=== PATIENT | female | born 1960 | race Caucasian/White ===

== ENCOUNTER 2022-06-23 16:09 | Emergency (ER) | payer OTHER, SELFPAY ==
--- NOTE | ~2022-06-23 | XR_ITS ---
Right Shoulder Technique: AP and scapular Y views were obtained. Clinical History: Pain Findings: No acute fracture or dislocation seen. Suture anchor present at the right humeral head. Lar ge subacromial spur present. Possible loose body in the subscapularis recess of the joint. Soft tissu es are otherwise unremarkable. Impression: No acute fracture or dislocation. Suture anchor at the right humeral head. Large subacromial spur with possible intra-articular loose body. Reviewed, dictated and finalized at location . GER MUSIC Impression: No acute fracture or dislocation. Suture anchor at the right humeral head. Large subacromial spur with possible intra-articular loose body.
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
[2022-06-23 16:40] VITALS: BP 127/75; PULSE 87; RESP 18; TEMP 36.5; O2SAT 100
== END 2022-06-23 17:25 | disposition home or self-care (01) ==
PROVIDERS: Emergency Provider Emergency Medicine
DX: M25.511 Pain in right shoulder (principal); I10 Essential (primary) hypertension; E03.9 Hypothyroidism, unspecified; Z87.891 Personal history of nicotine dependence; V43.52XA Car driver injured in collision with other type car in traffic accident, initial encounter; Y92.488 Other paved roadways as the place of occurrence of the external cause
CPT/HCPCS: 73030; 99283

== ENCOUNTER 2022-07-06 08:17 | Outpatient (CLI) | payer OTHER, SELFPAY ==
[2022-07-06 11:24] LABS: Basophils Percent Auto 0.8 % (0.2-1.2); Eosinophils Absolute Auto 0.1 K/mm3 (0-0.3); Eosinophils Percent Auto 2.9 % (0-4.4); Hematocrit 37.9 % (37.0-47.0); Hemoglobin 12.3 g/dL (12.0-15.0); Lymphocytes Absolute Auto 1.37 K/mm3 (0.9-3.2); Lymphocytes Percent Auto 35.7 % (18.3-44.2); Mean Corpuscular HGB Conc 32.5 g/dl (32-36); Mean Corpuscular Hemoglobin 29.9 pg (26-34); Mean Platelet Volume 10.3 fl (7.4-10.4); Monocytes Absolute Auto 0.4 K/mm3 (0.1-0.6); Monocytes Percent Auto 9.6 % (2.6-8.5); Platelet Count Result 212 k/mm3 (150-375); Red Blood Count 4.12 M/mm3 (4.2-5.4); Red Cell Distribution Width 12.2 % (11.5-14.5); White Blood Count 3.8 K/mm3 (4.5-10.0)
[2022-07-06 11:28] LABS: Alanine Aminotransferase 27 U/L (6-35); Albumin Level 4.4 g/dL (3.5-5.1); Alkaline Phosphatase 72 U/L (38-126); Anion Gap 3 mmol/L (8-16); Aspartate Amino Transferase 46 U/L (14-36); Bilirubin,Total 0.5 mg/dL (0.2-1.3); Blood Urea Nitrogen 22 mg/dL (7-17); Calcium 8.9 mg/dL (8.4-10.2); Carbon Dioxide 32 mmol/L (22-30); Chloride 98 mmol/L (98-107); Cholesterol 196 mg/dL (0-200); Estimated Glomerular Filt Rate > 60; Glucose 93 mg/dL (65-110); HDL Direct 42 mg/dL; Potassium 3.8 mmol/L (3.4-5.0); Sodium 133 mmol/L (137-145); Triglycerides 107 mg/dL (<150)
[2022-07-06 11:40] LABS: LDL Cholesterol Direct 97 mg/dL
== END 2022-07-06 08:18 | disposition home or self-care (01) ==
LOC: ANHGOSHLAB 08:17
PROVIDERS: Visit Provider Nurse Practitioner
DX: E78.5 Hyperlipidemia, unspecified (principal); I10 Essential (primary) hypertension; E03.9 Hypothyroidism, unspecified
CPT/HCPCS: 36415; 80053; 80061; 84443; 85025

== ENCOUNTER 2022-07-06 10:12 | Outpatient (CLI) | payer OTHER, SELFPAY ==
--- NOTE | ~2022-07-06 | XR_ITS ---
EXAMINATION: XR hand RT min 3V INDICATION: Right hand pain TECHNIQUE: Three views of the right hand are obtained. COMPARISON: None available FINDINGS: No fracture is identified. There is moderate osteoarthritis of multiple interphalangeal brennon nts. Soft tissues are unremarkable. IMPRESSION: 1. Polyarticular osteoarthritis. Reviewed, dictated and finalized at location B. [employer]
== END 2022-07-06 10:13 | disposition home or self-care (01) ==
PROVIDERS: PCP Family Medicine; Visit Provider Nurse Practitioner
DX: M19.041 Primary osteoarthritis, right hand (principal)
CPT/HCPCS: 73130

== ENCOUNTER 2023-01-04 09:11 | Outpatient (CLI) | payer OTHER, SELFPAY ==
[2023-01-04 18:24] LABS: Basophils Percent Auto 0.8 % (0.2-1.2); Eosinophils Absolute Auto 0.1 K/mm3 (0-0.3); Eosinophils Percent Auto 2.8 % (0-4.4); Hemoglobin 11.5 g/dL (12.0-15.0); Immature Granulocyte Absolute 0.01 K/mm3 (0.00-0.031); Immature Granulocyte Percent A 0.3 % (0-0.5); Lymphocytes Absolute Auto 1.18 K/mm3 (0.9-3.2); Lymphocytes Percent Auto 29.7 % (18.3-44.2); Mean Corpuscular HGB Conc 31.9 g/dl (32-36); Mean Corpuscular Hemoglobin 30.1 pg (26-34); Mean Corpuscular Volume 94.2 fl (80-100); Mean Platelet Volume 10.6 fl (7.4-10.4); Monocytes Absolute Auto 0.4 K/mm3 (0.1-0.6); Monocytes Percent Auto 9.8 % (2.6-8.5); Neutrophils Absolute Auto 2.3 K/mm3 (1.3-6.7); Neutrophils Percent Auto 56.6 % (45.5-73.1); Platelet Count Result 193 k/mm3 (150-375); Red Blood Count 3.82 M/mm3 (4.2-5.4)
[2023-01-04 18:28] LABS: Alanine Aminotransferase 33 U/L (6-35); Albumin Level 3.8 g/dL (3.5-5.1); Alkaline Phosphatase 68 U/L (38-126); Anion Gap 3 mmol/L (8-16); Aspartate Amino Transferase 46 U/L (14-36); Bilirubin,Total 0.5 mg/dL (0.2-1.3); Blood Urea Nitrogen 23 mg/dL (7-17); Calcium 8.9 mg/dL (8.4-10.2); Carbon Dioxide 31 mmol/L (22-30); Chloride 101 mmol/L (98-107); Cholesterol 180 mg/dL (0-200); Estimated Glomerular Filt Rate > 60; Glucose 80 mg/dL (65-110); HDL Direct 38 mg/dL; Potassium 3.8 mmol/L (3.4-5.0); Sodium 135 mmol/L (137-145); Triglycerides 131 mg/dL (<150)
[2023-01-04 18:42] LABS: LDL Cholesterol Direct 99 mg/dL
[2023-01-09 10:41] LABS: Vitamin D 1,25 (OH)2 Total 49 pg/mL (18-72); Vitamin D2 1,25 (OH)2 <8 pg/mL; Vitamin D3 1,25 (OH)2 49 pg/mL
== END 2023-01-04 09:12 | disposition home or self-care (01) ==
LOC: ANHGOSHLAB 09:13
PROVIDERS: PCP Family Medicine; Visit Provider Nurse Practitioner Family
DX: Z00.00 Encounter for general adult medical examination without abnormal findings (principal); E55.9 Vitamin D deficiency, unspecified; I10 Essential (primary) hypertension
CPT/HCPCS: 36415; 80053; 80061; 82652; 84443; 85025

== ENCOUNTER 2023-02-08 11:09 | Outpatient (CLI) | payer OTHER, SELFPAY ==
[2023-02-08 12:01] LABS: Strep Group A RT-PCR NOT DETECTED (Negative)
[2023-02-08 12:20] LABS: Influenza A QL RT-PCR Negative (Negative); Influenza B QL RT-PCR Negative (Negative); RSV RNA, RT-PCR Negative (Negative); SARS-CoV-2 RNA PCR Positive (Negative)
== END 2023-02-08 11:10 | disposition home or self-care (01) ==
LOC: ANHLAB 11:11
PROVIDERS: PCP Family Medicine; Visit Provider Family Medicine
DX: U07.1 COVID-19 (principal)
CPT/HCPCS: 87637; 87651

== ENCOUNTER 2023-02-22 10:07 | Outpatient (CLI) | payer OTHER, SELFPAY ==
--- NOTE | 2023-02-22 10:22 | ECG_ITS ---
Measurements Intervals [place] Rate: 64 P: 66 UT: 159 QRS: 38 QRSD: 92 T: 57 QT: 368 QTc: 380 Interpretive Statements SINUS RHYTHM NO PREVIOUS ECG AVAILABLE FOR COMPARISON Electronically Signed On 02-22-2023 14:29:37 CDT by Frederic Booth M.D.
== END 2023-02-22 10:08 | disposition home or self-care (01) ==
LOC: ANHCARD 10:10
PROVIDERS: PCP Family Medicine; Visit Provider Anesthesiology
DX: Z01.818 Encounter for other preprocedural examination (principal)
CPT/HCPCS: 93005

== ENCOUNTER 2023-03-07 09:49 | Day surgery (SDC) | payer OTHER, SELFPAY ==
[2023-03-07 10:51] VITALS: BP 112/77; PULSE 86; RESP 16; TEMP 37.3; O2SAT 100
[2023-03-07] MEDS: LACTATED RINGERS 1,000 ML 30 ML IV CONT ×2 (11:10→13:58)
--- NOTE | 2023-03-07 11:16 | PM.HPGS ---
History of Present Illness History of Present Illness Consent: Risks, benefits, and alternatives have been discussed and questions answered. Patient agrees to proceed with procedure. Chief complaint: Right Foot Hammer Toes, Pain Ankle & Joints RT. FT Narrative: Sybil Campbell is a 62 year old female presenting for hammertoe surgery on the right 2,3,4,5th toes. Review of Systems Review of Systems: All systems reviewed & are unremarkable except as noted in HPI and below Musculoskeletal: Musculoskeletal: Reports other (hammertoes right 2,3,4,5) Neurologic: Reports abnormal gait, Reports numbness, Reports tingling and Reports paresthesias PMF Past Medical History Medical History Hypertension Hypothyroid Peripheral neuropathy Surgical History Surgical History H/O excision of mass Excision of anal skin tag in office 12/14/22 H/O foot surgery H/O Spinal surgery History of abdominoplasty History of breast lift History of total knee replacement Family History Family History Sibling Family history of malignant neoplasm of breast in first degree relative Mother Aortic aneurysm Other Family history of malignant neoplasm Social History Social History Smoking status: Unknown if ever smoked Second hand tobacco smoke exposure: No Alcohol intake: unknown Alcohol use details: rarely Substance use: never Substance use type: does not use Lack of Transportation: No Lack of Food: Never True Current Housing: I Have Housing Concerned About Future Housing: No Difficulty Paying Gas/Electric Bills: No Difficulty Paying for Meds: No Currently Unemployed: No Education: Trade/Vocational Certificate Difficulty w/ Childcare or Family Care: No Living arrangements: alone Occupation/Education: occupation 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 Gender identity (if verbalized by the patient): Female Sexual Orientation (if Verbalized by the Patient): Straight or Heterosexual Spiritual care concerns: No Agree to blood products: Yes Meds Home Medications and Allergies Home Medications Medication Instructions Recorded Confirmed Type multivitamin with folic acid 400 1 tablet PO DAILY #90 tabs 08/03/21 03/07/23 Rx mcg tablet buprenorphine 2 mg-naloxone 0.5 mg 1 film buccal BID 10/19/22 03/07/23 History sublingual film (Suboxone) calcium carbonate 600 mg-vitamin 1 tablet PO BID #60 tabs 11/12/22 03/07/23 Rx D3 10 mcg (400 unit) tablet (Calcium 600 + D(3)) levothyroxine 88 mcg tablet 88 mcg PO DAILY #90 tabs 01/07/23 03/07/23 Rx lisinopril 20 1 tablet PO DAILY #90 tabs 01/11/23 03/07/23 Rx mg-hydrochlorothiazide 12.5 mg tablet Allergies Allergy/AdvReac Type Severity Reaction Status Date / Time No Known Allergies Allergy Unknown Verified 03/07/23 10:48 Vital Signs Vital Signs - 24 hr 03/07/23 10:51 Temperature 37.3 C Pulse Rate 86 Respiratory Rate 16 Blood Pressure 112/77 Pulse Oximetry 100 Oxygen Delivery Room Air Exam Narrative: PT aaox3 Hammertoes right 2,3,4,5 pedal pulses are 2/4 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 Neuro LOPS to the right foot midfoot level Assessment and Plan Assessment and plan (1) Hammertoe of right foot: Code(s): M20.41 - Other hammer toe(s) (acquired), right foot Status: Acute Plan Plan for hammertoe correction right 2,3,4,5th toes D/c once stable
--- NOTE | 2023-03-07 11:32 | WPDANESEPPF ---
Anes - Initial Pre Proc Eval Procedure: Operation Date: 03/07/23 12:00 Proposed Procedures p Correction Hammer Toe Right Second, Third, Fouth and Fifth Toes - Jose Mcconnell DPM Date/Time: 03/07/23 11:32 Surgeon: Jose Mcconnell DPM Pre Op Diagnosis: Right Foot Hammer Toes, Pain Ankle & Joints RT. FT Patient Data Age: 62 Gender: F Height: 1.52 m Weight: 54 kg Last Vital Signs Temp 37.3 C 03/07/23 10:51 Pulse 86 03/07/23 10:51 Resp 16 03/07/23 10:51 BP 112/77 03/07/23 10:51 Pulse Ox 100 03/07/23 10:51 O2 Del Method Room Air 03/07/23 10:51 Allergies Allergy/AdvReac Type Severity Reaction Status Date / Time No Known Allergies Allergy Unknown Verified 03/07/23 10:48 Home Medications Medication Instructions Recorded Confirmed Type multivitamin with folic acid 400 1 tablet PO DAILY #90 tabs 08/03/21 03/07/23 Rx mcg tablet buprenorphine 2 mg-naloxone 0.5 mg 1 film buccal BID 10/19/22 03/07/23 History sublingual film (Suboxone) calcium carbonate 600 mg-vitamin 1 tablet PO BID #60 tabs 11/12/22 03/07/23 Rx D3 10 mcg (400 unit) tablet (Calcium 600 + D(3)) levothyroxine 88 mcg tablet 88 mcg PO DAILY #90 tabs 01/07/23 03/07/23 Rx lisinopril 20 1 tablet PO DAILY #90 tabs 01/11/23 03/07/23 Rx mg-hydrochlorothiazide 12.5 mg tablet Patient hx anesthesia problems: post op nausea/vomiting Family hx anesthesia problems: post op nausea/vomiting Results Review: All pre-operative results and documents have been reviewed as part of the pre-operative evaluation. [facility] Past Medical History Medical History Hypertension Hypothyroid Peripheral neuropathy Surgical History Surgical History H/O excision of mass Excision of anal skin tag in office 12/14/22 H/O foot surgery H/O Spinal surgery History of abdominoplasty History of breast lift History of total knee replacement Family History Family History Sibling Family history of malignant neoplasm of breast in first degree relative Mother Aortic aneurysm Other Family history of malignant neoplasm Social History Social History Smoking status: Unknown if ever smoked Second hand tobacco smoke exposure: No Alcohol intake: unknown Alcohol use details: rarely Substance use: never Substance use type: does not use Lack of Transportation: No Lack of Food: Never True Current Housing: I Have Housing Concerned About Future Housing: No Difficulty Paying Gas/Electric Bills: No Difficulty Paying for Meds: No Currently Unemployed: No Education: Trade/Vocational Certificate Difficulty w/ Childcare or Family Care: No Living arrangements: alone Occupation/Education: occupation 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 Gender identity (if verbalized by the patient): Female Sexual Orientation (if Verbalized by the Patient): Straight or Heterosexual Spiritual care concerns: No Agree to blood products: Yes Anes - Eval Final PreProcedure Day of Procedure 03/07/23 11:32 Patient weight: normal Heart: regular rate and rhythm Lungs: clear to auscultation Airway: Mallampati scale class II Neurological: alert and oriented Last oral intake: >/= 8 hours ASA classification: III Emergent: no Anesthetic plan: proceed Anesthesia type and monitoring: general GIVS and standard monitoring Results Review: All pre-operative results and documents have been reviewed as part of the pre-operative evaluation. Informed Consent: The patient's anesthetic plan and its attendant risks and benefits were discussed with the patient/family/POA. Questions were solicited and answers provided to the satisfaction of the patient/family/POA.
[2023-03-07] MEDS: LIDOCAINE HCL 1% LOCAL INJ 20 ML VIAL 12 ML INFILTRATE (12:39)
[2023-03-07] MEDS: POVIDONE-IODINE 10% OINT 30 GM TUBE 1 APPLIC TOPICAL (13:53)
[2023-03-07 13:58] VITALS: BP 108/75; PULSE 77; RESP 14; O2SAT 100
--- NOTE | 2023-03-07 14:00 | P.OP_ITS ---
Procedure Note - Detailed Date of Procedure 03/07/23 Pre-op Diagnosis Right Foot Hammer Toes 2,3,4,5, Pain Ankle & Joints RT. FT Post-op Diagnosis Same Procedure Performed Correction of hammertoes 2,3,4,5th right foot Surgeon Jose Mcconnell DPM Anesthesia MAC Description of Procedure Pt was brought to the OR and placed supine on the OR table. After adequate IV sedation was obtained a local infiltrative block was applied to the right foot consisting of 12 cc total of a 1-1 mixture of 1% lidocaine and 0.25% Marcaine plain. Pneumatic ankle tourniquet was placed to the right ankle and set to 250mmHg. The right foot was prepped and draped in the normal aseptic fashion. Surgery began in the following manner: attention was directed to the right 2nd, 3rd, 4th, 5th hammertoes which were noted to be in flexion deformity. A 1 cm linear incision was made at the dorsal aspect of the proximal interphalangeal j oint of the right 2nd, 3rd, 4th, 5th digits and this incision was carried down to the of bone. Using a 15 blade the proximal interphalangeal joint was dissected freeing the attachments to the head of the proximal phalanx of the right 2nd, 3rd, 4th, 5th toes. Next using a bone cutter the head of the proximal phalanx was excised and removed from the operative field at the head of the proximal phalanx of the right 2nd, 3rd, 4th, 5th digits. Next a bone rasp was used to smooth all rough edges. Normal saline flush. Next the extensor tendons reapproximated balancing the digits utilizing 3.0 Vicryl. Next the skin was closed utilizing 4.0 Vicryl and 3.0 nylon. Correction of the deformity was assessed at this time and noted to be excellent. A sterile dressing was placed to the right foot utilizing Betadine ointment, Adaptic, 4x4s, Chadwick, and Coban. patient tolerated the procedure well and left the operating room to the recovery area with vital signs stable, neurovascular status unchanged, and capillary filling time less than 5 seconds to all digits. Estimated Blood Loss 1 Tourniquet Time 67 Drains No Pathology None sent Complications None Condition Stable Disposition Same day
--- NOTE | 2023-03-07 14:16 | WPDANESPN ---
Anes - Prog Note Post-Op Date/Time: 03/07/23 14:16 Cardiovascular status: normal Respiratory status: normal Airway patency: baseline Mental status: baseline Post-Op hydration status: normal Vital Signs: Last Vital Signs Temp 37.3 C 03/07/23 10:51 Pulse 86 03/07/23 10:51 Resp 16 03/07/23 10:51 BP 112/77 03/07/23 10:51 Pulse Ox 100 03/07/23 10:51 O2 Del Method Room Air 03/07/23 10:51 Pain Score (VAS): 0 Patient Feedback: Patient satisfied with anesthetic care.
[2023-03-07 14:20] VITALS: BP 113/67; PULSE 76; RESP 16; O2SAT 100
--- NOTE | 2023-03-07 14:29 | SUR.PHASEII ---
PT AWAKE AND ALERT. DENIES PAIN OR NAUSEA. PT IS TALKATIVE WITH FAMILY, EATING AND DRINKING. STATES SHE IS READY TO GO HOME.
[2023-03-07 14:40] VITALS: BP 105/72; PULSE 72; RESP 16; O2SAT 99
--- NOTE | 2023-03-07 15:05 | SUR.PHASEII ---
1450; CALLED DR MACKENZIE, HE REQUESTED XRAYS OF RT FOOT. 3 VIEWS, NWB. PT TAKEN TO IMAGING HERE IN THE [facility].
== END 2023-03-07 14:50 | disposition home or self-care (01) ==
PROVIDERS: PCP Family Medicine; Visit Provider Podiatrist Foot & Ankle Surgery
PROC: (CPT 28285; principal; 2023-03-07 12:00)
DX: M20.41 Other hammer toe(s) (acquired), right foot (principal)
CPT/HCPCS: 28285 ×4

== ENCOUNTER 2023-03-07 14:58 | Outpatient (CLI) | payer OTHER, SELFPAY ==
--- NOTE | ~2023-03-07 | XR_ITS ---
XR foot RT min 3V 03/07/2023 15:12 Indication: Right foot pain Procedure: 3 views of the right foot Comparison: No prior studies for comparison. Findings: There are osteotomy defects of the second, third, fourth and fifth proximal phalanges dista lly. Mild osteoarthritis of the first metatarsophalangeal joint. Lisfranc joint is intact. Mild diffu se soft tissue swelling. No acute fracture is identified. Impression: 1: Postoperative changes consistent with osteotomies of the second-fifth proximal phalanges. Correlat e clinically. Reviewed, dictated and finalized at location A. Impression: 1: Postoperative changes consistent with osteotomies of the second-fifth proxim al phalanges. Correlate clinically.
== END 2023-03-07 14:59 | disposition home or self-care (01) ==
PROVIDERS: PCP Family Medicine; Visit Provider Podiatrist Foot & Ankle Surgery
DX: M20.41 Other hammer toe(s) (acquired), right foot (principal)
CPT/HCPCS: 73630

== ENCOUNTER 2023-09-18 07:48 | Outpatient (NON) | payer OTHER, SELFPAY ==
[2023-09-18 19:17] LABS: Basophils Percent Auto 0.6 % (0.2-1.2); Eosinophils Absolute Auto 0.2 K/mm3 (0-0.3); Eosinophils Percent Auto 4.1 % (0-4.4); Hematocrit 39.1 % (37.0-47.0); Hemoglobin 12.2 g/dL (12.0-15.0); Immature Granulocyte Absolute 0.01 K/mm3 (0.00-0.031); Immature Granulocyte Percent A 0.2 % (0-0.5); Lymphocytes Absolute Auto 1.89 K/mm3 (0.9-3.2); Lymphocytes Percent Auto 40.4 % (18.3-44.2); Mean Corpuscular HGB Conc 31.2 g/dl (32-36); Mean Corpuscular Hemoglobin 29.9 pg (26-34); Mean Corpuscular Volume 95.8 fl (80-100); Mean Platelet Volume 10.7 fl (7.4-10.4); Monocytes Absolute Auto 0.5 K/mm3 (0.1-0.6); Monocytes Percent Auto 11.1 % (2.6-8.5); Neutrophils Percent Auto 43.6 % (45.5-73.1); Platelet Count Result 254 k/mm3 (150-375); Red Blood Count 4.08 M/mm3 (4.2-5.4); Red Cell Distribution Width 12.4 % (11.5-14.5); White Blood Count 4.7 K/mm3 (4.5-10.0)
[2023-09-18 19:47] LABS: Free T4 Free Thyroxine 1.34 ng/mL (0.78-2.19)
[2023-09-18 19:55] LABS: Alanine Aminotransferase 45 U/L (6-35); Albumin Level 4.1 g/dL (3.5-5.1); Alkaline Phosphatase 70 U/L (38-126); Anion Gap 6 mmol/L (4-12); Aspartate Amino Transferase 59 U/L (14-36); Bilirubin,Total 0.5 mg/dL (0.2-1.3); Blood Urea Nitrogen 15 mg/dL (7-17); Calcium 9.6 mg/dL (8.4-10.2); Carbon Dioxide 33 mmol/L (22-30); Chloride 101 mmol/L (98-107); Cholesterol 183 mg/dL (0-200); Estimated Glomerular Filt Rate > 60; Glucose 81 mg/dL (65-110); HDL Direct 34 mg/dL; Sodium 140 mmol/L (137-145); Triglycerides 231 mg/dL (<150)
[2023-09-18 20:04] LABS: LDL Cholesterol Direct 91 mg/dL
[2023-09-20 01:08] LABS: Triiodothyronine T3 Free 3.1 pg/mL (2.3-4.2)
[2023-09-21 11:24] LABS: Vitamin D 1,25 (OH)2 Total 48 pg/mL (18-72); Vitamin D2 1,25 (OH)2 <8 pg/mL; Vitamin D3 1,25 (OH)2 48 pg/mL
== END 2023-09-18 07:49 | disposition home or self-care (01) ==
LOC: ANHGOSHLAB 07:50
PROVIDERS: PCP Nurse Practitioner Family; Visit Provider Nurse Practitioner Family
DX: E03.9 Hypothyroidism, unspecified (principal); E55.9 Vitamin D deficiency, unspecified; R79.89 Other specified abnormal findings of blood chemistry; I10 Essential (primary) hypertension
CPT/HCPCS: 36415; 80053; 80061; 82652; 84439; 84443; 84481; 85025

== ENCOUNTER 2023-10-05 07:20 | Outpatient (CLI) | payer OTHER, SELFPAY ==
--- NOTE | ~2023-10-05 | US_ITS ---
EXAMINATION: US abdomen complete DATE: 10/05/2023 08:38 INDICATION: Abnormal levels of other serum enzymes. TECHNIQUE: Multiple grayscale and Doppler ultrasound images of the abdomen were obtained. COMPARISON: None FINDINGS: The visualized portions of the head and body of the pancreas are normal. There is a 1.6 cm cyst in the liver. There is normal flow in main portal vein. The gallbladder is contracted. No gallst ones or sonographic Fagan sign. The common duct is dilated to 9 mm. The spleen is normal in size. Th e kidneys are normal in size. Abdominal aorta is normal in caliber. Inferior vena cava is normal. IMPRESSION: 1. Mildly dilated common duct. Reviewed, dictated and finalized at location A.
== END 2023-10-05 07:21 | disposition home or self-care (01) ==
LOC: ANHIMG 07:20
PROVIDERS: PCP Nurse Practitioner Family; Visit Provider Nurse Practitioner
DX: R74.8 Abnormal levels of other serum enzymes (principal)
CPT/HCPCS: 76700

== ENCOUNTER 2024-03-20 09:00 | Outpatient (CLI) | payer OTHER, SELFPAY ==
[2024-03-20 15:15] LABS: Alanine Aminotransferase 37 U/L (6-35); Albumin Level 4.2 g/dL (3.5-5.1); Alkaline Phosphatase 72 U/L (38-126); Anion Gap 7 mmol/L (4-12); Aspartate Amino Transferase 57 U/L (14-36); Bilirubin,Total 0.5 mg/dL (0.2-1.3); Blood Urea Nitrogen 31 mg/dL (7-17); Calcium 9.1 mg/dL (8.4-10.2); Carbon Dioxide 31 mmol/L (22-30); Chloride 101 mmol/L (98-107); Estimated Glomerular Filt Rate > 60; Glucose 87 mg/dL (65-110); Potassium 3.9 mmol/L (3.4-5.0); Sodium 139 mmol/L (137-145)
== END 2024-03-20 09:01 | disposition home or self-care (01) ==
LOC: ANHGOSHLAB 09:01
PROVIDERS: PCP Family Medicine; Visit Provider Nurse Practitioner Family
DX: I10 Essential (primary) hypertension (principal); E03.9 Hypothyroidism, unspecified
CPT/HCPCS: 36415; 80053; 84439; 84443

== ENCOUNTER 2024-07-03 01:25 | Day surgery (SDC) | payer OTHER, SELFPAY ==
[2024-04-23 10:11] VITALS: BMI 22.8
--- NOTE | 2024-05-01 07:40 | SUR.PREOP ---
Patient called in regards to procedure today. Patient states she was unable to tolerate bowel prep. Patient reports vomiting all of the Miralax mixture and could not complete leaving her with solid BMs. Patient states she will call back to reschedule appointment for another day.
[2024-06-15 12:12] VITALS: BMI 23.3
--- OUTSIDE RECORDS SUMMARY | 2024-07-03 01:31 | XMS_ITS | Data Portability ---
Author Organization [facility] Address [address] [place] [address] Assessment No assessment recorded. Plan of Treatment Reminders Order Date Submit Date Provider Last Modified By Organization Details Last Modified Time Details Appointments None ruben sharma Lab urinaly sis dipstic k 2018 019 aguila In-Office Order, Internal Use Only DO Not Attach Compendium DO Not Attach Compendium, Do Not Delete/merge, [id number] 9 14:42:31 fecal occult blood, immunoa ssay, stool 2018 019 [facility], [address] [place] [address], [facility] [address], [place], [address], 9 12:32:14 HBsAg (hepati tis B surface Ag), EIA, serum 2017 018 [facility], [address] [place] [address], [facility] [address], [place], [address], 8 08:31:12 hepatit is C Ab, signal- to-cuto ff, serum or plasma 2017 018 [facility], [address] [place] [address], [address], [place], [address], 8 08:31:11 hepatit is B surface Ab, qualita tive, serum 2017 018 [facility], [address] [place] [address], [address], [place], [address], 8 08:31:11 Referral counsellors ing referra l 2020 021 [facility], [address], [place], [address], 1 15:04:35 interna l medicin e referra l 2018 019 [facility]ik Velasquez MD, [address] [place], [address], 9 14:34:12 gastroe nterolo gist referra l 2017 018 [email or web address] Mayra Gutierrez MD, [address] [facility] [address], [place], [address], 9 17:43:15 rheumat ologist referra l - Please call patient to davideul e appoint ment 2017 018 [email or web address] Leslye Awad, [address] [facility], [facility] [address], [place], [address], 9 17:43:15 Procedures None recorde d. Surgeries None recorde d. Imaging MAMMO, screeni froilan osborne al 2020 021 [facility] ([facility]), [address] [place], [address], 1 12:33:58 MAMMO, screeni froilan osborne al 2018 019 [facility] ([facility]), [address] [place], [address], 9 11:25:02 US, liver 2017 018 [facility] ([facility] Sched[facility]), [address] [place], [address], 9 13:34:17 Medication Orders None recorde d. Patient TargetsNo targets recorded. Patient Instructions Encounter Date Encounter Id Patient Instructions Last Modified By Organization Details Last Modified Time 08/26/2018 [id number] [facility] 08/26/2018 12:32:09 hypothyroidism: care instructions [facility] Not available 08/26/2018 12:32:10 05/26/2020 [id number] mammogram: about this test [facility] Not available 05/26/2020 10:46:00 11/04/2020 [id number] learning about high blood pressure [facility] Not available 11/04/2020 10:46:10 hypothyroidism: care instructions [facility] Not available 11/04/2020 10:46:10 Reason for Referral Cfd Engineer Referral for Muscle atrophy Please call patient to schedule appointment Referring Physician: Melinda Velasquez Internal Medicine, Encounter Date: 04/16/2018 Insole Tacker Referral for Screening for malignant neoplasm of colon Referring Physician: Melinda Velasquez Internal Medicine, Encounter Date: 04/16/2018 Internal Medicine Referral f or Hypertensive disorder Referring Physician: Vishnu Hudson, CONSERVATION WORKER, Encounter Date: 08/26/2018 Counseling Referral for Unde r care of marriage guidance counselor Referring Physician: Melinda Velasquez Internal Medicine, Encounter Date: 11/04/2020 Results Created Date Observation Date Name Description Value Unit Range Abnormal Flag Note LastModifiedBy Organization Detail LastModifiedTime 08/27/1908/26/2018 urina lysis , dipst ick Leukocytes Negati ve Not Available In-Office Order Internal Use Only DO Not Attach Compendium DO Not Attach Compendium, Do Not Delete/merge, [id number] 08/26/2018 14:03:56 08/27/1908/26/2018 urina lysis , dipst ick Nitrite negati ve Not Available In-Office Order Internal Use Only DO Not Attach Compendium DO Not Attach Compendium, Do Not Delete/merge, [id number] 08/26/2018 14:03:56 08/27/1908/26/2018 urina lysis , dipst ick Urobilinogen .2 Not Available In-Of fice Order Internal Use Only DO Not Attach Compendium DO Not Attach Compendium, Do Not Delete/merge, [id number] 08/26/2018 14:03:56 08/27/19 19 08/26/2018 urina lysis , dipst ick Protein Negati ve Not Available In-Office Order Internal Use Only DO Not Attach Compendium DO Not Attach Compendium, Do Not Delete/merge, 08/26/2018 14:03:56 08/27/19 19 08/26/2018 urina lysis , dipst ick pH 6.0 Not Available In-Office Order Internal Use Only DO Not Attach Compendium DO Not Attach Compendium, Do Not Delete/merge, 08/26/2018 14:03:56 08/27/19 19 08/26/2018 urina lysis , dipst ick Blood Negati ve Not Available In-Office Order Internal Use Only DO Not Attach Compendium DO Not Attach Compendium, Do Not Delete/merge, 08/26/2018 14:03:56 08/27/19 19 08/26/2018 urina lysis , dipst ick Specific Bradford 1.030 Not Available In-Off ice Order Internal Use Only DO Not Attach Compendium DO Not Attach Compendium, Do Not Delete/merge, 08/26/2018 14:03:56 08/27/19 19 08/26/2018 urina lysis , dipst ick Ketone Negati ve Not Available In-Office Order Internal Use Only DO Not Attach Compendium DO Not Attach Compendium, Do Not Delete/merge, 08/26/2018 14:03:56 08/27/19 19 08/26/2018 urina lysis , dipst ick Bilirubin Negati ve Not Available In-Office Order Internal Use Only DO Not Attach Compendium DO Not Attach Compendium, Do Not Delete/merge, 08/26/2018 14:03:56 08/27/19 19 08/26/2018 urina lysis , dipst ick Glucose Negati ve Not Available In-Office Order Internal Use Only DO Not Attach Compendium DO Not Attach Compendium, Do Not Delete/merge, [id number] 08/26/2018 14:03:56 03/13/20 18 03/14/2018 TSH + free T4, serum TSH 2.430 uIU/m L 0.450- 4.500 Not Available [facility] ([facility]) [address] [facility], [place], [address], 03/14/2018 09:17:22 03/13/20 18 03/14/2018 TSH + free T4, serum T4,free(dire ct) 1.19 NG/dL 0.82-1 .77 Not Available [facility] ([facility]) [address] [facility], [place], [address], 03/14/2018 09:17:22 03/13/20 18 03/13/2018 CBC w/ auto diff WBC 6.4 x10e3 /uL 3.4-10 .8 Not Available [facility] ([facility]) [address] [facility], [place], [address], 03/14/2018 09:17:23 03/13/20 18 03/13/2018 CBC w/ auto diff RBC 4.17 x10e6 /uL 3.77-5 .28 Not Available [facility] ([facility]) [address] [facility], [place], [address], 03/14/2018 09:17:23 03/13/20 18 03/13/2018 CBC w/ auto diff hemoglobin 13.0 g/dL 11.1-1 5.9 Not Available [facility] ([facility]) [address] [place], [address], 03/14/2018 09:17:23 03/13/20 18 03/13/2018 CBC w/ auto diff hematocrit 38.7 % 34.0-4 6.6 Not Available [facility] ([facility]) [address] [place], [address], 03/14/2018 09:17:23 03/13/20 18 03/13/2018 CBC w/ auto diff MCV 93 fL 79-97 Not Available [facility] ([facility]) [address] [facility], [place], [address], 03/14/2018 09:17:23 03/13/20 18 03/13/2018 CBC w/ auto diff MCH 31.2 pg 26.6-3 3.0 Not Available [facility] ([facility]) [address] [facility], [place], [address], 03/14/2018 09:17:23 03/13/20 18 03/13/2018 CBC w/ auto diff MCHC 33.6 g/dL 31.5-3 5.7 Not Available [facility] ([facility]) [address] [facility], [place], [address], 03/14/2018 09:17:23 03/13/20 18 03/13/2018 CBC w/ auto diff RDW 13.4 % 12.3-1 5.4 Not Available [facility] ([facility]) [address] [facility], [place], [address], 03/14/2018 09:17:23 03/13/20 18 03/13/2018 CBC w/ auto diff platelets 264 x10e3 /uL 150-37 9 Not Available [facility] ([facility]) [address] [facility], [place], [address], 03/14/2018 09:17:23 03/13/20 18 03/13/2018 CBC w/ auto diff neutrophils 64 % not estab. Not Available [facility] ([facility]) [address] [facility], [place], [address], 03/14/2018 09:17:23 03/13/20 18 03/13/2018 CBC w/ auto diff lymphs 27 % not estab. Not Available [facility] ([facility]) [address] [facility], [place], [address], 03/14/2018 09:17:23 03/13/20 18 03/13/2018 CBC w/ auto diff monocytes 7 % not estab. Not Available [facility] ([facility]) [address] [facility], [place], [address], 03/14/2018 09:17:23 03/13/20 18 03/13/2018 CBC w/ auto diff eos 2 % not estab. Not Available [facility] ([facility]) [address] [place], [address], 03/14/2018 09:17:23 03/13/20 18 03/13/2018 CBC w/ auto diff basos 0 % not estab. Not Available [facility] ([facility]) [address] [place], [address], 03/14/2018 09:17:23 03/13/20 18 03/13/2018 CBC w/ auto diff immature cells NUCLEAR MEDICINE TECH Not Available [facility] ([facility]) [address] [place], [address], 03/14/2018 09:17:23 03/13/20 18 03/13/2018 CBC w/ auto diff neutrophils (absolute) 4.1 x10e3 /uL 1.4-7. 0 Not Available [facility] ([facility]) [address] [facility], [place], [address], 03/14/2018 09:17:23 03/13/20 18 03/13/2018 CBC w/ auto diff lymphs (absolute) 1.7 x10e3 /uL 0.7-3. 1 Not Available [facility] ([facility]) [address] [place], [address], 03/14/2018 09:17:23 03/13/20 18 03/13/2018 CBC w/ auto diff monocytes(ab solute) 0.4 x10e3 /uL 0.1-0. 9 Not Available [facility] ([facility]) [address] [place], [address], 03/14/2018 09:17:23 03/13/20 18 03/13/2018 CBC w/ auto diff eos (absolute) 0.1 x10e3 /uL 0.0-0. 4 Not Available [facility] ([facility]) [address] [facility], [place], [address], 03/14/2018 09:17:23 03/13/20 18 03/13/2018 CBC w/ auto diff baso (absolute) 0.0 x10e3 /uL 0.0-0. 2 Not Available [facility] ([facility]) [address] [facility], [place], [address], 03/14/2018 09:17:23 03/13/20 18 03/13/2018 CBC w/ auto diff immature granulocytes 0 % not estab. Not Available [facility] ([facility]) [address] [facility], [place], [address], 03/14/2018 09:17:23 03/13/20 18 03/13/2018 CBC w/ auto diff immature grans (abs) 0.0 x10e3 /uL 0.0-0. 1 Not Available [facility] ([facility]) [address] [facility], [place], [address], 03/14/2018 09:17:23 03/13/20 18 03/13/2018 CBC w/ auto diff NRBC NUCLEAR MEDICINE TECH Not Available [facility] ([facility]) [address] [facility], [place], [address], 03/14/2018 09:17:23 03/13/20 18 03/13/2018 CBC w/ auto diff hematology comments: NUCLEAR MEDICINE TECH Not Available [facility] ([facility]) [address] [facility], [place], [address], 03/14/2018 09:17:23 03/13/20 18 03/14/2018 CMP, serum or plasm a glucose 98 mg/dL 65-99 Not Available [facility] ([facility]) [address] [facility], [place], [address], 03/14/2018 09:17:23 03/13/20 18 03/14/2018 CMP, serum or plasm a BUN 20 mg/dL 6-24 Not Available [facility] ([facility]) [address] [place], [address], 03/14/2018 09:17:23 03/13/20 18 03/14/2018 CMP, serum or plasm a creatinine 0.64 mg/dL 0.57-1 .00 Not Available [facility] ([facility]) [address] [place], [address], 03/14/2018 09:17:23 03/13/20 18 03/14/2018 CMP, serum or plasm a eGFR if nonafricn AM 101 mL/mi n/1.7 3 >59 Not Available [facility] ([facility]) [address] [place], [address], 03/14/2018 09:17:23 03/13/20 18 03/14/2018 CMP, serum or plasm a eGFR if africn AM 116 mL/mi n/1.7 3 >59 Not Available [facility] ([facility]) [address] [place], [address], 03/14/2018 09:17:23 03/13/20 18 03/14/2018 CMP, serum or plasm a BUN/creatini ne ratio 31 9-23 above high normal Not Available [facility] ([facility]) [address] [place], [address], 03/14/2018 09:17:23 03/13/20 18 03/14/2018 CMP, serum or plasm a sodium 141 mmol/ L 134-14 4 Not Available [facility] ([facility]) [address] [place], [address], 03/14/2018 09:17:23 03/13/20 18 03/14/2018 CMP, serum or plasm a potassium 4.7 mmol/ L 3.5-5. 2 Not Available [facility] ([facility]) [address] [place], [address], 03/14/2018 09:17:23 03/13/20 18 03/14/2018 CMP, serum or plasm a chloride 100 mmol/ L 96-106 Not Available [facility] ([facility]) [address] [facility] [place], [address], 03/14/2018 09:17:23 03/13/20 18 03/14/2018 CMP, serum or plasm a carbon dioxide, total 28 mmol/ L 20-29 Not Available [facility] ([facility]) [address] [facility] [place], [address], 03/14/2018 09:17:23 03/13/20 18 03/14/2018 CMP, serum or plasm a calcium 10.1 mg/dL 8.7-10 .2 Not Available [facility] ([facility]) [address] [place], [address], 03/14/2018 09:17:23 03/13/20 18 03/14/2018 CMP, serum or plasm a protein, total 6.6 g/dL 6.0-8. 5 Not Available [facility] ([facility]) [address] [facility], [place], [address], 03/14/2018 09:17:23 03/13/20 18 03/14/2018 CMP, serum or plasm a albumin 4.5 g/dL 3.5-5. 5 Not Available [facility] ([facility]) [address] [facility], [place], [address], 03/14/2018 09:17:23 03/13/20 18 03/14/2018 CMP, serum or plasm a globulin, total 2.1 g/dL 1.5-4. 5 Not Available [facility] ([facility]) [address] [place] [address], [address], 03/14/2018 09:17:23 03/13/20 18 03/14/2018 CMP, serum or plasm a A/G ratio 2.1 1.2-2. 2 Not Available [facility] ([facility]) [address] [place], [address], 03/14/2018 09:17:23 03/13/20 18 03/14/2018 CMP, serum or plasm a bilirubin, total 0.4 mg/dL 0.0-1. 2 Not Available [facility] ([facility]) [address] [place], [address], 03/14/2018 09:17:23 03/13/20 18 03/14/2018 CMP, serum or plasm a alkaline phosphatase 70 IU/L 39-117 Not Available [facility] ([facility]) [address] [place], [address], 03/14/2018 09:17:23 03/13/20 18 03/14/2018 CMP, serum or plasm a AST (SGOT) 58 IU/L 0-40 above high normal Not Available [facility] ([facility]) [address] [place], [address], 03/14/2018 09:17:23 03/13/20 18 03/14/2018 CMP, serum or plasm a ALT (SGPT) 70 IU/L 0-32 above high normal Not Available [facility] ([facility]) [address] [facility] [place], [address], 03/14/2018 09:17:23 03/13/20 18 03/14/2018 lipid panel , serum cholesterol, total 237 mg/dL 100-19 9 above high normal Not Available [facility] ([facility]) [address] [facility] [place], [address], 03/14/2018 09:17:24 03/13/20 18 03/14/2018 lipid panel , serum triglyceride s 198 mg/dL 0-149 above high normal Not Available [facility] ([facility]) [address] [facility] [place], [address], 03/14/2018 09:17:24 03/13/20 18 03/14/2018 lipid panel , serum HDL cholesterol 47 mg/dL >39 Not Available [facility] ([facility]) [address] [place], [address], 03/14/2018 09:17:24 03/13/20 18 03/14/2018 lipid panel , serum VLDL cholesterol theo 40 mg/dL 5-40 Not Available [facility] ([facility]) [address] [place], [address], 03/14/2018 09:17:24 03/13/20 18 03/14/2018 lipid panel , serum LDL cholesterol calc 150 mg/dL 0-99 above high normal Not Available [facility] ([facility]) [address] [facility], [place], [address], 03/14/2018 09:17:24 03/13/20 18 03/14/2018 lipid panel , serum comment: NUCLEAR MEDICINE TECH Not Available [facility] ([facility]) [address] [facility], [place], [address], 03/14/2018 09:17:24 03/13/20 18 03/14/2018 lipid panel , serum LDL/HDL ratio 3.2 ratio 0.0-3. 2 LDL/H DL Ratio Men Women 1/2 Avg.R isk 1.0 1.5 Avg.R isk 3.6 3.2 2X Avg.R isk 6.2 5.0 3X Avg.R isk 8.0 6.1 Not Available [facility] ([facility]) [address] [facility], [place], [address], 03/14/2018 09:17:24 03/13/20 18 03/14/2018 abo group + rh type, blood ABO grouping O Not Available [facility] ([facility]) [address] [place] [address], [place], [address], 03/14/2018 09:17:25 03/13/20 18 03/14/2018 abo group + rh type, blood Rh factor NEGATI VE Pleas e note: Prior recor ds for this patie nt's ABO / Rh type are not avail able for addit ional verif icati on. Not Available [facility] ([facility]) [address] [facility], [place], [address], 03/14/2018 09:17:25 03/13/20 18 03/14/2018 PT/IN R INR 1.0 0.8-1. 2 Refer ence inter lisa is for non-a ntico agula zack patie nts. Sugge sted INR thera peuti c range for Vitam in K antag onist thera py: Stand myla Dose (mode rate inten sity thera peuti c range ): 2.0 - 3.0 Highe r inten sity thera peuti c range 2.5 - 3.5 Not Available [facility] ([facility]) [address] [facility], [place], [address], 03/14/2018 09:17:25 03/13/20 18 03/14/2018 PT/IN R prothrombin time 10.4 sec 9.1-12 .0 Eff ectiv e Octob er 2017, Proth rombi n Time + INR will be made non-o rdera ble. [facility] offer s order code [id number] Proth rombi n Time (PT). Not Available [facility] ([facility]) [address] [facility], [place], [address], 03/14/2018 09:17:25 03/13/20 18 03/14/2018 HbA1c (hemo globi n A1c), blood hemoglobin A1C 5.3 % 4.8-5. 6 Predi abete s: 5.7 - 6.4 Diabe adams: >6.4 Glyce rowan contr ol for adult s with diabe adams: <7.0 Not Available [facility] ([facility]) [address] [facility], [place], [address], 03/14/2018 09:17:26 03/13/20 18 03/14/2018 vitam in D, 25-hy droxy , total , serum vitamin D, 25-hydroxy 64.8 NG/mL 30.0-1 00.0 Vitam in D defic iency has been defin ed by the Insti tute of Medic ine and an Endoc rine Socie ty pract ice guide line as a level of serum 25-OH vitam in D less than 20 ng/mL (1,2) . The Endoc rine Socie ty went on to furth er defin e vitam in D insuf ficie ncy as a level betwe en 21 and 29 ng/mL (2). 1. IOM (Inst itute of Medic ine). 2009. Rebekah ry refer ence me es for calci um and D. Kaye toro [place]: The [facility] . 2. Devon au MF, Meseret mathew [place], Jasmeet off-F errar i BRADLEY, et al. Evalu ation , treat ment, and preve ntion of vitam in D defic iency : an Endoc rine Socie ty clini theo pract ice guide line. JCEM. 2010; 96(7) :1911 -30. Not Available [facility] ([facility]) [address] [facility], [place], [address], 03/14/2018 09:17:26 03/19/20 18 03/20/2018 hepat itis B surfa ce Ab, quali tativ e, serum hep B surface Ab, qual NON REACTI VE Non React carlin: Incon siste nt with immun ity, less than 10 mIU/m L React carlin: Consi stent with immun ity, great er than 9.9 mIU/m L Not Available [facility] ([facility]) [address] [facility], [place], [address], 03/20/2018 08:31:11 03/19/20 18 03/20/2018 hepat itis C Ab, signa l-to- cutof f, serum or plasm a hep C virus Ab <0.1 s/co_ ratio 0.0-0. 9 Negat carlin: < 0.8 Indet ermin ate: 0.8 - 0.9 Posit carlin: > 0.9 The CDC recom mends that a posit carlin HCV antib cristhian resul t be follo wed up with a HCV Nucle ic Acid Ampli ficat ion test (5507 13). Not Available [facility] ([facility]) [address] [facility], [place], [address], 03/20/2018 08:31:11 03/19/20 18 03/20/2018 HBsAg (hepa titis B surfa ce Ag), EIA, serum HBsAg screen NEGATI VE negati ve Not Available [facility] ([facility]) [address] [facility], [place], [address], 03/20/2018 08:31:12 04/22/20 18 01/27/2018 MRI, knee, w/o contr ast No observ ation record ed. [facility] (Imaging) [address] [place], [address], 08/26/2018 13:34:16 08/22/19 19 08/21/2018 XR, chest , 2 view No observ ation record ed. [facility] (Imaging) [address] [place], [address], 08/26/2018 13:34:16 09/05/19 19 09/02/2018 XR, knee No observ ation record ed. [email or web address] Not Available 2018 15:45:19 10/04/19 19 10/02/2018 MAMMO helen, bilat eral No observ ation record ed. [email or web address] Not Available 11/2020 10:39:05 06/17/19 21 06/17/2020 MAMMO , scree chidi, bilat eral No observ ation record ed. [facility] ([facility]) [address] [place], [address], 06/23/2020 14:56:27 Result Notes None recorded. Problems Name Problem SNOMED Code Status Onset Date Resolution Date Notes Provider Name and Address Organization Details Recorded Time Pre-surgery testing Active 2017 Meng Dillon PA-C Attn: Candy altamirano,[address] [facility], [place], [address], [place] - [facility] 8 14:55:14 Arthritis of left knee 0113723045071 104 Active 2017 Meng Dillon PA-C Attn: Candy altamirano,[address] [facility], [place], [address], [place] [facility] 8 17:59:37 Liver function tests outside reference range 724111437 Active 2018 Clarisse Godinez RN null, [place] - [facility] 9 17:23:57 Smoker 87879005 Active Vishnu Hudson null, [place] [facility] 6 14:41:06 Hypertensiv e disorder 32267440 Active Vishnu Hudson null, [place] [facility] 6 17:17:42 Hypothyroid ism 78336755 Active Vishnu Hudson null, [place] [facility] 6 17:17:42 Candidiasis 98409173 Active Vishnu Hudson null, [place] [facility] 6 13:02:22 Menopausal syndrome 456638003 Active Vishnu Hudson null, [place] 6 09:14:48 Atrophic vaginitis 97077084 Active Vishnu Hudson null, [place] 6 14:41:06 Urinary incontinenc e 111214960 Active Vishnu Hudson null, [place] [facility] 6 17:19:46 Anxiety 46306804 Active 2016 Vishnu Hudson null, [place] [facility] 7 11:37:53 Problem Notes None recorded. Procedures Surgical History Date Name Laterality Status Provider Name and Address Organization Details Recorded Time 10/03/19 19 Most Recent Mammogram completed Isabella Escalona [place] - [facility] 05/26/2020 09:40:53 08/23/19 18 Date of Last Pap Smear completed Mayuri Piedra [place] - [facility] 08/26/2018 11:47:01 05/20/19 17 repair of shoulder completed Vishnu Hudson [facility] 08/26/2018 12:11:00 05/20/19 11 Myomectomy completed Sybil Kerr MA [facility] 10/06/2014 10:47:59 05/20/19 10 Orthopedic Surgery completed Sybil Kerr MA [facility] 10/06/2014 10:47:59 05/20/19 09 Orthopedic Surgery completed Sybil Kerr MA [facility] 10/06/2014 10:47:59 05/20/19 02 Tubal Ligation completed Sybil Kerr MA [facility] 10/06/2014 10:47:59 05/20/19 00 Endometrial Ablation completed Sybil Kerr MA [facility] 10/06/2014 10:47:59 Breast Surgery completed Sybil Kerr MA [facility] 10/25/2015 11:33:57 Breast Implants completed Sybil au MA [facility] 10/25/2015 11:33:57 Imaging Results Imaging Date Name Status LastModified by Organiz ation Details LastModified Time 01/27/2018 MRI, knee, w/o contrast completed [facility] (Imaging) [address] [place], [address], 08/26/2018 13:34:16 08/21/2018 XR, chest, 2 view completed [facility] (Imaging) [address] [place], [address], 08/26/2018 13:34:16 09/02/2018 XR, knee completed [email or web address] Information no t available 09/04/2018 15:45:19 10/02/2018 MAMMO, screening, bilateral completed [email or web address] Information not available 05/26/2020 10:39:05 06/17/2020 MAMMO, screening, bilateral completed [facility] ([facility] Call Scheduling) [address] [place], [address], 06/23/2020 14:56:27 Procedure Notes None recorded. Medical Equipment None Reported. Allergies No known drug allergies Medications Name Sig Start Date Stop Date Status Note LastModified by Organization Details LastModified Time amoxicillin 500 mg capsule 05/26 completed Not Available Not Available Not Available medroxyprog esterone 10 mg tablet 04/16 completed Not Available Not Available Not Available Estring 2 mg (7.5 mcg/24 hour) vaginal ring Insert 1 vaginal ring every month by vaginal route. 02/17 completed Not Available Not Available Not Available lisinopril 20 mg-hydrochl orothiazide 12.5 mg tablet TAKE 1 TABLET BY MOUTH EVERY DAY active Not Available Not Available No t Available fluconazole 150 mg tablet Take 1 tablet by oral route. 02/17 completed Not Available Not Available Not Available hydrocodone 5 mg-acetamin ophen 325 mg tablet 08/26 completed Not Available Not Available Not Available meloxicam 15 mg tablet 05/26 completed Not Available Not Available Not Available hydroxyzine HCl 50 mg tablet Take 1 tablet twice a day by oral route as needed. 04/16 completed Not Available Not Available Not Available Terazol 3 0.8 % vaginal cream Insert 1 applicato rful every day by vaginal route for 3 days. 04/16 completed Not Available Not Available Not Available hydrocodone 10 mg-acetamin ophen 325 mg tablet 08/26 completed Not Available Not Available Not Available Macrobid 100 mg capsule Take 1 capsule every 12 hours by oral route for 10 days. 04/16 completed Not Available Not Available Not Available levothyroxi ne 100 mcg tablet active Not Available Not Available Not Available oxycodone-a cetaminophe n 5 mg-325 mg tablet 05/26 completed Not Available Not Available Not Available alprazolam 0.5 mg tablet 02/17 completed Not Available Not Available Not Available famotidine 20 mg tablet 05/26 completed Not Available Not Available Not Available cyanocobala min (vit B-12) 1,000 mcg/mL injection solution Inject 1 mL every month by intramusc ular route. 02/17 completed Not Available Not Available Not Available nystatin 100,000 unit/gram topical cream APPLY TO THE AFFECTED AREA(S) BY TOPICAL ROUTE 2 TIMES PER DAY 04/16 completed Not Available Not Available Not Available diclofenac sodium 75 mg tablet,varsha yed release 04/16 completed Not Available Not Available Not Available gabapentin 100 mg capsule 02/17 completed Not Available Not Available Not Available lorazepam 1 mg tablet 05/26 completed Not Available Not Available Not Available fentanyl 25 mcg/hr transdermal patch 08/26 completed Not Available Not Available Not Available Paxil 10 mg tablet Take 1 tablet every day by oral route. 04/16 completed Not Available Not Available Not Available nicotine 7 mg/24 hr daily transdermal patch Apply 1 patch every day by transderm al route. 04/16 completed Not Available Not Available Not Available oxycodone 5 mg tablet 05/26 completed Not Available Not Available Not Available Daily-Alia tablet TAKE 1 TABLET BY MOUTH EVERY DAY active Not Available Not Available No t Available Premarin 0.625 mg/gram vaginal cream INSERT 1 G 3 TIMES A WEEK BY VAGINAL ROUTE. 05/26 completed Not Available Not Available Not Available Premarin 0.3 mg tablet 04/16 completed Not Available Not Available Not Available calcium 600 mg (as carbonate)- vitamin D3 10 mcg (400 unit) tablet TAKE 1 TABLET BY MOUTH TWICE A DAY 2020 active Not Available Not Available Not Avai lable Chantix Continuing Month Waqas 1 mg tablet Take 1 tablet twice a day by oral route. 02/17 completed Not Available Not Available Not Available Senexon-S 8.6 mg-50 mg tablet 05/26 completed Not Available Not Available Not Available hydromorpho ne ER 16 mg tablet,exte nded release 24 hr 04/16 completed Not Available Not Available Not Available calcium 600 mg (as carbonate)- vitamin D3 20 mcg (800 unit) tablet Take 1 tablet twice a day by oral route for 30 days. 04/16 completed Not Available Not Available Not Available Brisdelle 7.5 mg capsule Take 1 capsule every day by oral route. 02/17 completed Not Available Not Available Not Available Narcan 4 mg/actuatio n nasal spray 04/16 completed Not Available Not Available Not Available Vitals Date Recorded Body height Body mass index (BMI) Body weight Heart rate Body temperature Oxygen saturation Oxygen saturation in Arterial blood by Pulse oximetry Systolic blood pressure Diastolic blood pressure Provider Name and Address Organization Details Last Updated DateTime 8 152.4 cm 27.7 kg/m2 49935.4 g 90 /min 98.1 [degF] 98 % 98 % 132 mm[Hg] 80 mm[Hg] Mayuri Puente MA [facility] 8 14:49:49 Date Recorded Body height Body mass index (BMI) Body weight Body temperature Oxygen saturation Oxygen saturation in Arterial blood by Pulse oximetry Heart rate Systolic blood pressure Diastolic blood pressure Provider Name and Address Organization Details Last Updated DateTime 8 152.4 cm 27.4 kg/m2 55283.3 6 g 98.1 [degF] 100 % 100 % 87 /min 124 mm[Hg] 84 mm[Hg] Rod Naylor MA [facility] 8 17:23:22 Date Recorded Body height Provider Name an d Address Organization Details Last Updated DateTime 08/26/2018 152.4 cm Mayuri Piedra MA [facility] 08/26 11:47:41 Date Recorded Body mass index (BMI) Body weight Systolic blood pressure Diastolic blood pressure Provider Name and Address Organization Details Last Updated DateTime 08/26/2018 28.1 kg/m2 14042.3 g 102 mm[Hg] 68 mm[Hg] Vishnu Hudson [facility] 08/26/2018 12:01:09 Date Recorded Body height Body mass index (BMI) Body weight Systolic blood pressure Diastolic blood pressure Provider Name and Address Organization Details Last Updated DateTime 05/26/2020 152.4 cm 23.6 kg/m2 61751.68 g 108 mm[Hg] 72 mm[Hg] Isabella Escalona MA [facility] 1 09:59:35 Social History Question Answer Notes LastModified by Organizat ion Details LastModified Time Tobacco Smoking Status Former Smoker quit 8 Vishnu ling [facility] 08/26/2018 12:07:06 Do You Have An Advance Directive? No Information not available 10/25/2015 What Is Your Level Of Alcohol Consumption? Occasional Information not available 10/25/2015 Is Blood Transfusion Acceptable In An Emergency? Yes Information not available 10/25/2015 What Is Your Level Of Caffeine Consumption? Heavy Information not available 10/25/2015 How Much Tobacco Do You Chew? None Information not available 10/25/2015 Are You Currently Employed? Yes Information not available 10/25/2015 What Type Of Diet Are You Following? REGULAR Information not available 10/25/2015 Do You Or Have You Ever Used E-cigarettes Or Vape? Never Used Electronic Cigarettes Information not available 05/26/2020 Education 2 Year College Informatio n not available 10/25/2015 What Is Your Occupation? [employer] Information not available 10/25/2015 Live Alone Or With Others? With Others Information not available 10/25/2015 What Was The Date Of Your Most Recent Tobacco Screening? 05/26/2020 Information not available 05/26/2020 How Many Children Do You Have? 4 Information not available 10/25/2015 Performs Monthly Self-breast Exam? No Information not available 08/26/2018 Do You Use Protection During Sex? No Information not available 10/25/2015 What Is Your Relationship Status? Single Soon To Be , Late 2018 Information not available 08/26/2018 Seat Belts Used Routinely Yes Information not available 10/25/2015 Are You Sexually Active? Yes Information not available 10/25/2015 At What Age Did You Start Smoking Tobacco? 18 Information not available 10/25/2015 Do You Or Have You Ever Used Smokeless Tobacco? Never Used Smokeless Tobacco Information not available 05/26/2020 How Much Tobacco Do You Smoke? 1 PPW Information not available 10/06/2014 General Stress Level Medium Information not available 08/26/2018 Do You Use Sunscreen Routinely? Yes Information not available 10/25/2015 How Many Years Have You Smoked Tobacco? 25 Information not available 10/25/2015 Sex: Unknown Functional Status Question Answer Note LastModified by Organizat ion Details LastModified Time What is your exercise level? Occasional plans to increase after L knee surgery scheduled for 09/02/2018 aguila Information not available 08/26/2018 Mental Status None recorded. Family History Relationship Description Onset Age of this Age Resolved Age Notes LastModified by Organization Details LastModified Time Sister Malignant tumor of breast aguila Not available 10/24 12:05:08 Mother Hypercholest erolemia aguila Not available 10/24 12:05:08 Mother Aneurysm aguila Not availab le 08/26/2018 12:04:54 Notes:mother with aneurysm x 3, abdominal Medical History Condition Response Heart Problems N Other N High Blood Pressure Y Breast Cancer N Thyroid Problems Y Kidney or Bladder Problems N Lung Disease N GI Problems N Depression N Blood Clots N Acne N Eating Disorder N Breast Problem N Anemia N Anesthesia Complications N Headaches/Migraines N Ovarian Cancer N Diabetes N Anxiety Disorder N Muscle, Joint, or Bone Problems N Blood Transfusions N Seizures/Epilepsy N Arthritis N Polyps N Infertility N Acid Reflux (GERD) N Cancer N Stroke N Abuse/Domestic Violence N Asthma N Endometriosis N High Cholesterol N Hepatitis N Liver Disease N Heart Disease N Fibromyalgia N Pre-Eclampsia N Hypertension N Osteoporosis N Kidney Disease N Gynecological History Statement/Question Response Abnormal Pap N On BCP's at Conception? N STIs/STDs N HPV Vaccine N Most Recent Mammogram 10/02/2018 Age at Menarche 14 Current Control Method Tubal Ligat ion Age at First Child 23 If Post Menopausal, Age at Menopause 48 Sexually Active? Y Menses Monthly N Date of Last Pap Smear 08/22/2017 Sexual Problems? N LMP Unknown Desired Control Method N/A Obstetrics History GPAL:G 4 P 3 1 0 4 Type Value Multiple Births 0 Full Term 3 Induced 0 Spontaneous 0 Premature 1 Living 4 Ectopics 0 Total 4 Immunizations Vaccine Type Date Status Note Provider Nam e and Address Organization Details Recorded Time Influenza A monovalent (H5N1), AD[facility]UV[employer]ED-201203/29/2014 completed Vishnu Hudson [place], [place] - [facility] 10/06/2014 11:45:22 Past Encounters Encounter ID Performer Location Encounter Start Date Encounter Closed Date Diagnosis/Indication Diagnosis SNOMED-CT Code Diagnosis ICD10 Code Diagnosis Note [id number] GWENDOLYN Vazquez (CONSERVATION WORKER) [address] [place] [address] [id number] 0 10/06/2014 10:15:29 10/06/2014 12:34:01 Smoker 73440190 Screening for malignant neoplasm of breast 786320778 Gynecologi c examination 77931852 Hypertensive disorder 67754148 Hypothyroidism 09492058 [id number] Vishnu SMITH (CONSERVATION WORKER) [address] [place] [address] [id number] 0 10/25/2015 10:41:17 10/25/2015 12:17:02 Gynecologic examination 83569745 Z01.419 Menopausal syndrome 1237 01722 N95.9 Screening mammography 24 968110 Z12.31 Atrophic vaginitis 18538 000 N95.2 Smoker 56460153 F17.200 Hypothyroidism 48703783 E03.9 Hypertensive disorder 38 303933 I10 Female sterilization 608 70876 Z30.2 [id number] LIZBETH Solis (CONSERVATION WORKER) [address] [place] [address] [id number] 0 12/31/2016 09:50:14 12/31/2016 15:19:21 Gynecologic examination 29847924 Z01.419 Z11.51 Screening mammography 24 972165 Z12.31 Anxiety 91581130 F41.9 Neeru was recently injured in an accident. refer to Menopausal syndrome 1237 18564 N95.9 Urinary tr act infectious disease 52666704 N39.0 Increased blood pressure 44791131 R03.0 [id number] Vishnu Campos (CONSERVATION WORKER) [address] [place] [address] [id number] 0 08/22/2017 11:08:38 08/22/2017 13:28:56 Gynecologic examination 20731008 Z01.419 Z11.51 Screening mammography 24 449414 Z12.31 Trying to give up smoking 092833791 Z72.0 Atrophic vaginitis 48134 000 N95.2 Screening for malignant neoplasm of colon 920352590 Z12.11 Knee pain 30430085 M25.5 62 left side [id number] LUISA Carranza (Adult Med) [address] [place] [address] [id number] 0 02/17/2018 13:20:18 02/17/2018 15:03:55 Smoker 11172045 F17.200 quit tobacco half pack daily two months ago Hypothyroidism 90930254 E03.9 Hypertensive disorder 38 020000 I10 Pre-surgery testing 1104 28323 Z01.89 Arthritis of left knee 8127985195 226558 M13.204 [id number] Melinda Velasquez MD [facility] (Adult Med) [address] [place] [address] [id number] 0 03/19/2018 14:37:19 03/19/2018 15:40:53 Pain in right knee 8511693728 34166 M25.561 Plain to have surgery in the near future. Liver func tion tests outside reference range 331440544 R94.5 Not a regular drinker, no knowledge of her previous liver condition. Discussed with patient, she agreed the tests as ordered. Copy of CMP 14 provided to patient as she asked. [id number] Melinda Velasquez MD [facility] (Adult Med) [address] [place] [address] [id number] 0 04/16/2018 16:28:51 04/17/2018 09:57:01 Muscle atrophy 14598442 M62.50 Right hand wasting. Liver func tion tests outside reference range 800538214 R94.5 Not a regular drinker, no knowledge of her previous liver condition. Discussed with patient, she agreed the tests as ordered. Copy of CMP 14 provided to patient as she asked. Screening for malignant neoplasm of colon 636027208 Z12.11 [id number] Vishnu Beccaabimbola Campos (CONSERVATION WORKER) [address] [place] [address] [id number] 0 08/26/2018 11:21:34 08/26/2018 15:28:32 Screening mammography 67301485 Z12.31 Screening for malignant neoplasm of colon 010713016 Z12.11 Hypothyroidism 35648381 E03.9 Hypertensive disorder 38 315766 I10 [id number] POLO DAVIES (CONSERVATION WORKER) [address] [place] [address] [id number] 0 05/26/2020 09:28:21 05/27/2020 13:22:04 Screening mammography 35001382 Z12.31 Postmenopausal state 764 98585 Z78.0 59yo F presents for clinical breast exam. She has concerns today.-cli nical breast exam completed today, unremarkab le -cervical cancer screening: Last Pap 08/22/2018, negative.- Last mammogram 10/02/2018, BIRADS 2. Referral for screening mammogram issued for routine breast cancer screening- Educated osteoporos is prevention including calcium rich diet, weight bearing exercise. Continue supplement . -RTC in 1yr [id number] Melinda Velasquez MD [facility] (Adult Med) [address] [place] [address] 11/04/2020 09:07:24 11/07/2020 14:54:27 Essential hypertension 19570027 I10 Well controlled . On lisinopril -Hctz. Hypothyroidism 41734812 E03.9 stable on levothyrox in, Under care of marriage guidance counselor 571859976 Z76.89 Will refer to [facility] for marriage counselor /guidance. As she requested. . Health Concerns Section Related Observation LastModified by Organization Detai ls LastModified Time None Recorded Concern Status LastModified by Organization Details LastModified Time None Recorded Advance Directives Directive N: Payers Encounter Date Sequence Insurance Name Policy Number Policy Matthews Covered Member ID Matthews Member ID Guarantor Name 03/19/2018 1 [place] [employer] [place] [employer] Sybil Campbell [id number] Sybil Gian 04/16/2018 1 [facility] (MEDICAID HMO) [id number] Sybil Campbell [id number] Sybil Gian 08/26/2018 1 [facility] (MEDICAID HMO) [id number] Sybil Campbell [id number] Sybil Gian 05/26/2020 1 [facility] (MEDICAID HMO) [id number] Sybil Adrian [id number] Sybil Gian 11/04/2020 1 [facility] (MEDICAID HMO) [id number] Sybil Campbell [id number] Sybil Springer Notes Date Note Type Note Provider Name and Address Organization Details Recorded Time 03/19/2018 text/html Surgical clearnc e, will have left knee operation in the near future, history of neck, back, and right foot operations, not on blood thinner, NKDA. Lists of medications reviewed. no chest pain, no difficulty of breathing or swelling ankles, no history of coronary heart disease. Melinda Velasquez MD Attn: Accounting,[address] [facility], [place], [address], [facility] 03/19/2018 15:34:02 04/16/2018 text/html Right hand weak, going to pain management, has not seen doctor for years. Ambidetroxous. History of cervical spine surgery, 2 feet operations. Negative hepatitis B/C and unremarkable liver U/S , she took food supplement before . Melinda Velasquez MD Attn: Accounting,[address] [facility], [place], [address], [facility] 04/16/2018 18:05:20 08/26/2018 text/html Breast ProblemsReported bypatient.Quality:asym ptomatic; no bloody discharge; no brown discharge; no milky discharge; no yellow-clear discharge; no yellow-green discharge; non-tender; improving; no mass Context:prior mammogram normal; performs breast self-examination; no breast implants; no family history of breast cancer; no history of breast cancer; no radiation treatment; no chemotherapy; no cancer; no previous biopsies; no miscarriages; recent MRI normal; lymph node status negative Modifying Factors:no recent change in exercise habits; no recent changes in weight; no recent changes in diet; no recent changes in medication dosage of hormone replacement therapy Aggravating Factors:none Associated Symptoms:no fever; no chills; no breast reddening; no nipple discharge; no sore nipples; no nipple inversion; breasts feel normal; no breast swelling; no arm pain; no arm swelling; no chest pain; no malaise; no breast lump; no change in breast skin 58yo CF with hypothyroidism and HTN 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 Vishnu ling [place] - [facility] 08/26/2018 17:42:29 05/26/2020 text/html Annual GYNReport ed bypatient.Menstrual cycle:postmenopausal Urinary symptoms:No hematuria; No incontinence Vulva:No genital lesion Vagina:Normal vaginal discharge Breast:No breast pain; No breast lump; No nipple discharge Sexual complaints:No pain during intercourse;Decreased libido Psychological symptoms:No depression; No anxiety; No PMDD Preventive measures:Encourage self breast examination; Encourage regular exercise; Encourage no tobacco use; Encourage regular mammograms starting age 40; Needs to schedule mammogramNotes:Followe d with Q5 year pap smear and high risk HPV testing 59yo CF with hypothyroidism and HTN 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 She has no concerns today. She states she is meeting with doctor in [place] for consultation for HRT pellets. She reports decreased libido and energy. Last Pap 08/22/2018, negative. Last mammogram 10/02/2018, BIRADS 2. POLO DAVIES Attn: Accounting,[address] [facility], [place], [address], [facility] 05/26/2020 13:09:15 11/04/2020 text/html Phone visit, due to christina virus pandemic, she understood and agreed, NKSA, has enough medications, and stated that she is , neds to be referred to counseling [facility].History of hypertension, hypothyroidism,on levothyroxine and lisinopril-HCTZ. Melinda Velasquez MD Attn: Accounting,[address] [facility], [place], [address], [facility] 11/04/2020 10:46:15 OBGyn Episode Ob Episode Information Episode Created Date Number of Fetuses Patient Bloodtype Patient rh Status Prepregnancy Weight lbs Domestic Partner Domestic Partner Phone Father Name Induction Heating Equipment Setter Status 10/25/19 16 1 CLOSED Fetus Data First Name Last Name Admitted to NICU Weight (g) Sex Living Outcome Pediatric Complications Fetus ID Race Codes Race Delivery Type 2267.96 M Prematur e 68143 Marques Calculation Initial Marques Date Initial Exam Date Initial Exam Provider Initial Ultrasound Date Last Menstrual Period Date Ultra Sound Weeks Gestation 0 Eighteen To Twenty Week Marques Update Ultra Sound Date Fundal Height At Umbil Quickening Date Ultra Sound Latest Weeks Gestation Final Marques Confirmed By Final Marques Confirmed Date Final Marques Date Ultra Sound Latest Days Gestation 0 0 Menstrual History Last Menstrual Date Menses Monthly On Bcp Conception Prior Menses Frequency Hcg Plus Date Menarche Onset Age Delivery Information Delivery Date Delivery Type Labor Anesthesia Weeks Gestation Incision Type Labor Labor Length Hrs Delivered By Post Complications Tubal Sterilization Discharge Date Comments 2 General 32 Rolly Discharge Information Feeding Method Contraceptive Method Maternal HG B and HCT Levels Ob Episode Information Episode Created Date Number of Fetuses Patient Bloodtype Patient rh Status Prepregnancy Weight lbs Domestic Partner Domestic Partner Phone Father Name Induction Heating Equipment Setter Status 10/25/19 16 1 CLOSED Fetus Data First Name Last Name Admitted to NICU Weight (g) Sex Living Outcome Pediatric Complications Fetus ID Race Codes Race Delivery Type 3770.48 35 M Full Term 72139 Vaginal Marques Calculation Initial Marques Date Initial Exam Date Initial Exam Provider Initial Ultrasound Date Last Menstrual Period Date Ultra Sound Weeks Gestation 0 Eighteen To Twenty Week Marques Update Ultra Sound Date Fundal Height At Umbil Quickening Date Ultra Sound Latest Weeks Gestation Final Marques Confirmed By Final Marques Confirmed Date Final Marques Date Ultra Sound Latest Days Gestation 0 0 Menstrual History Last Menstrual Date Menses Monthly On Bcp Conception Prior Menses Frequency Hcg Plus Date Menarche Onset Age Delivery Information Delivery Date Delivery Type Labor Anesthesia Weeks Gestation Incision Type Labor Labor Length Hrs Delivered By Post Complications Tubal Sterilization Discharge Date Comments 7 None 40 [place] Discharge Information Feeding Method Contraceptive Method Maternal HG B and HCT Levels Ob Episode Information Episode Created Date Number of Fetuses Patient Bloodtype Patient rh Status Prepregnancy Weight lbs Domestic Partner Domestic Partner Phone Father Name Induction Heating Equipment Setter Status 10/25/19 16 1 CLOSED Fetus Data First Name Last Name Admitted to NICU Weight (g) Sex Living Outcome Pediatric Complications Fetus ID Race Codes Race Delivery Type 3798.83 3 M Full Term 36344 Vaginal Marques Calculation Initial Marques Date Initial Exam Date Initial Exam Provider Initial Ultrasound Date Last Menstrual Period Date Ultra Sound Weeks Gestation 0 Eighteen To Twenty Week Marques Update Ultra Sound Date Fundal Height At Umbil Quickening Date Ultra Sound Latest Weeks Gestation Final Marques Confirmed By Final Marques Confirmed Date Final Marques Date Ultra Sound Latest Days Gestation 0 0 Menstrual History Last Menstrual Date Menses Monthly On Bcp Conception Prior Menses Frequency Hcg Plus Date Menarche Onset Age Delivery Information Delivery Date Delivery Type Labor Anesthesia Weeks Gestation Incision Type Labor Labor Length Hrs Delivered By Post Complications Tubal Sterilization Discharge Date Comments 3 None 40 false [place] Discharge Information Feeding Method Contraceptive Method Maternal HG B and HCT Levels Ob Episode Information Episode Created Date Number of Fetuses Patient Bloodtype Patient rh Status Prepregnancy Weight lbs Domestic Partner Domestic Partner Phone Father Name Induction Heating Equipment Setter Status 10/25/19 16 1 CLOSED Fetus Data First Name Last Name Admitted to NICU Weight (g) Sex Living Outcome Pediatric Complications Fetus ID Race Codes Race Delivery Type 3798.83 3 M Full Term 27555 Vaginal Marques Calculation Initial Marques Date Initial Exam Date Initial Exam Provider Initial Ultrasound Date Last Menstrual Period Date Ultra Sound Weeks Gestation 0 Eighteen To Twenty Week Marques Update Ultra Sound Date Fundal Height At Umbil Quickening Date Ultra Sound Latest Weeks Gestation Final Marques Confirmed By Final Marques Confirmed Date Final Marques Date Ultra Sound Latest Days Gestation 0 0 Menstrual History Last Menstrual Date Menses Monthly On Bcp Conception Prior Menses Frequency Hcg Plus Date Menarche Onset Age Delivery Information Delivery Date Delivery Type Labor Anesthesia Weeks Gestation Incision Type Labor Labor Length Hrs Delivered By Post Complications Tubal Sterilization Discharge Date Comments 4 None 40 Noel Discharge Information Feeding Method Contraceptive Method Maternal HG B and HCT Levels
--- OUTSIDE RECORDS SUMMARY | 2024-07-03 01:31 | XMS_ITS ---
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 Role Phone Severo Ede Primary Care Provider Allergies No Known Allergies REASON FOR VISIT MAR f/u Medications Medication SIG (Take, Route, Frequency, Duration) Notes Start Date End Date Status Buprenorphine HCl-Naloxone HCl 8-2 MG 1 tablet under the tongue and allow to dissolve Sublingual 1 tablet in morning and afternoon, 1/2 tablet in evening 03/25/2024 Active Levothyroxine Sodium 88 MCG TAKE 1 TABLET BY MOUTH EVERY DAY Oral for 90 Days Active Lisinopril 20 MG 1 tablet Orally Once a day Active Lisinopril-hydroCHLOROthia zide 20-12.5 MG Oral for 90 Days Not-Taki ng Encounters Encounter Location Date Provider Diagnosis [place] [address] [address] 03/25/2024 Ede Elkins Opioid use disorder F11.99 Assessments Encounter Date Diagnosis (ICD Code) Assessment Notes Treatment Notes Treatment Clinical Notes Section Notes 03/25/2024 Opioid use disorder (ICD-10 - F11.99) 03/25/2024 Other Patient agrees to take medication as prescribed. Discussed medication side effects, adverse effects, risks, benefits, as well as interactions. Encouraged non-use of opioids. Has naloxone. Recommended participation in recovery groups and/or counseling services. May contact office with questions or concerns. Plan Of Treatment Medication Medication Name Sig Start Date Stop Date Notes Buprenorphine HCl-Naloxone H Cl 8-2 MG 1 tablet under the tongue and allow to dissolve Sublingual 1 tablet in morning and afternoon, 1/2 tablet in evening 03/25/2024 Treatment Notes Assessment Notes Other Patient agrees to take medication as prescribed. Discussed medication side effects, adverse effects, risks, benefits, as well as interactions. Encouraged non-use of opioids. Has naloxone. Recommended participation in recovery groups and/or counseling services. May contact office with questions or concerns. 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 Provider: Obdulio Elkins, MSN, TUBE ROLLER, FOLDER SEAMER [employer] :1960 A ge:63 Y S ex:Female Date:03/25/2024 Address:[address] [place], [place] [id number] Subjective: * Chief Complaints: * M AR f/u * HPI: D epression Screening: PHQ-9 L ittle interest or pleasure in doing things?Not at all F eeling down, depressed, or hopeless N ot at all T rouble falling or staying asleep, or sleeping too much N ot at all F eeling tired or having little energy N ot at all P oor appetite or overeating N ot at all F eeling bad about yourself or that you are a failure, or have let yourself or your family down N ot at all T rouble concentrating on things, such as reading the newspaper or watching television N ot at all M oving or speaking so slowly that other people could have noticed; or the opposite, being so fidgety or restless that you have been moving around a lot more than usual N ot at all T houghts that you would be better off or of hurting yourself in some way N ot at all T otal Score 0 S creening: [place] Suicide Severity Rating Scale (LF) D o you want to initiate with S creener form 1 . Wish to be : Have you wished you were or wished you could go to sleep and not wake up? N o 2 . Suicidal Thoughts: Have you actually had any thoughts of killing yourself? N o 6 . Suicide Behaviour: Have you ever done anything,started to do anything, or prepared to end your life? N o I nterpretation: L ow Risk C SSRS Interpretation and Follow Up Plan: CSSRS Interpretation and Follow Up Plan. CSSRS Interpretation and Follow Up Plan C SSRS Screen documented using SF N o M oderate or High risk requires selection of a follow up plan C SSRS No/Low: intervention not needed at this time M AR follow-up: Appointment via Zoom. Sybil presents for Jul/ for treatment of OUD. Has been taking buprenorphine as prescribed and reports current dose effect. Reports no use of opioids or cravings. States she continues to experience symptoms of ADHD, however, has been unable to set appointment with psych provider due to work schedule. Medication Monitoring and Risk Mitigation U p-to-date on ASAM recommended lab testing??Yes reports labs completed with PCP P rescribed a buprenorphine product? Y es H as patient had a buprenorphine and metabolite lab ordered/collected? Y es (see notes for date of last metabolite testing) D ate of last buprenorphine and metabolite?10/05/2022 P rescription Drug Monitoring Program Review?Yes. No concerns at this time. P conrado to address any concerns identified: N o concerns identified. Will continue treatment plan as is. Cravings, Setbacks, Substance use, and Stressors C ravings since last visit: N o. Patient denies cravings since last visit. S etbacks since last visit? N o, patient denies setbacks since last visit. M isuse of substances since last visit: N o, patient denies. S tressors N o, patient denies stressors at this time. Withdrawal and Intoxication Symptoms I ntoxication Symptoms: T elehealth visit. Unable to fully assess for signs of intoxication. W ithdrawal Symptoms: T elehealth visit. Unable to fully assess for withdrawal signs. Mental Health, Support System, and Social Determinants M ental Health Status S table. S upport Systems Include: P ersonal support system (see notes). C ourt System Involvement? N o H ousing Stability: S table and safe housing. 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 R eferrals needed: N o referrals needed at this time. Recommended Wellness and Prevention Follow-up R ecommended Wellness and Prevention reviewed:?Yes. No additional orders/actions needed at this time. Other concerns: O ther Concerns? N o. N arcan need N o. Patient already has Narcan. * ROS: B asic ROS: Denies C hills. D enies S weats. D enies C onstipation. I nsomnia D enies. D enies S uicidal Thoughts. * Medical History: * Surgical History: r ight foot 03/07/23 * Hospitalization/Major Diagno stic Procedure: D enies Past Hospitalization * Family History: F ather: , Car crash. M other: , Fluid in lungs. 4 brother(s) , 3 sister(s) - healthy. 4 son(s) - healthy. . 1 brother passed 1 son is transgender. * Social History: P rimary Social History: L iving Arrangement L iving Arrangement: Independent Living ,Is this a supportive environment? Yes.. Alcohol Use A lcohol Use Frequency: M onthly or less Illicit Substance Usage I llicit Substance Usage: N o last use a couple months ago Employment Status E mployment Status: Y es Tobacco Use T obacco Use: F ormer * Medications: T akingLisinopril 20 MG Tablet 1 tablet Orally Once a day Levothyroxine Sodium 88 MCG Capsule TAKE 1 TABLET BY MOUTH EVERY DAY Oral Buprenorphine HCl-Naloxone HCl 8-2 MG Tablet Sublingual 1 tablet under the tongue and allow to dissolve Sublingual 1 tablet in morning and afternoon, 1/2 tablet in evening Taking Lisinopril 20 MG Tablet 1 tablet Orally Once a day Taking Levothyroxine Sodium 88 MCG Capsule TAKE 1 TABLET BY MOUTH EVERY DAY Oral Taking Buprenorphine HCl-Naloxone HCl 8-2 MG Tablet Sublingual 1 tablet under the tongue and allow to dissolve Sublingual 1 tablet in morning and afternoon, 1/2 tablet in evening Mhd-BrghmtQzhvyfoxqz-eycgaLRDGHKajdyvwfc 20- 12.5 MG Tablet Oral Medication List reviewed and reconciled with the patientNot-Taking Lisinopril-hydroCHLOROthiazide 20-12.5 MG Tablet Oral Medication List reviewed and reconciled with the patient * Allergies: N .K.D.A.no[Allergies Verified] Objective: * Vitals: * Examination: G eneral Examination: GENERAL APPEARANCE: a ppointment via telephone. PSYCH: s peech clear, thought process logical, goal directed. Assessment: * Assessment: 1. O pioid use disorder - F11.99 (Primary) Plan: * Treatment: 2. O thers Notes: Patient agrees to take medication as prescribed. Discussed medication side effects, adverse effects, risks, benefits, as well as interactions. Encouraged non-use of opioids. Has naloxone. Recommended participation in recovery groups and/or counseling services. May contact office with questions or concerns. 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 History and Physical Notes * HPI (History of Present Illness) Category Sub-Category Detail Notes Category Not es Depression Screening PHQ-9 Little inte rest or pleasure in doing things: Not at all Feeling down, depressed, or hopeless: No t at all Trouble falling or staying asleep, or sl eeping too much: Not at all Feeling tired or having little energy: N ot at all Poor appetite or overeating: Not at all Feeling bad about yourself o r that you are a failure, or have let yourself or your family down: Not at all Trouble concentrating on thi ngs, such as reading the newspaper or watching television: Not at all Moving or speaking so slowly that other people could have noticed; or the opposite, being so fidgety or restless that you have been moving around a lot more than usual: Not at all Thoughts that you would be b nalini off or of hurting yourself in some way: Not at all Total Score: 0 Screening [place] Suicide Sev erity Rating Scale (LF) Do you want to initiate with: Screener form 1. Wish to be : Have you wished you were or wished you could go to sleep and not wake up?: No 2. Suicidal Thoughts: Have you actually had any thoughts of killing yourself?: No 6. Suicide Behavior Question: Have you ever done anything,started to do anything, or prepared to end your life?: No Interpretation:: Low Risk Do Not Use CSSRS Interpretation and Follow Up Plan CSSRS Interpretation and Follow Up Plan CSSRS Screen documented using SF: No Moderate or High risk requir es selection of a follow up plan: CSSRS No/Low: intervention not needed at this time MAR follow-up Medication Monitorin g and Risk Mitigation Up-to-date on ASAM recommended lab testing?: Yes reports labs completed with PCP Prescribed a buprenorphine product?: Yes Has patient had a buprenorphine and metabolite lab ordered/collected?: Yes (see notes for date of last metabolite testing) Date of last buprenorphine and metabolite: 10/05/2022 Prescription Drug Monitoring Program Rev iew: Yes. No concerns at this time. Plan to address any concerns identified:: No concerns identified. Will continue treatment plan as is. Cravings, Setbacks, Substanc e use, and Stressors Cravings since last visit:: No. Patient denies cravings since last visit. Setbacks since last visit?: No, patient denies setbacks since last visit. Misuse of substances since last visit:: No, patient denies. Stressors: No, patient denies stressors at this time. Withdrawal and Intoxication Symptoms Int oxication Symptoms:: Telehealth visit. Unable to fully assess for signs of intoxication. Withdrawal Symptoms:: Telehe alth visit. Unable to fully assess for withdrawal signs. Mental Health, Support Syste m, and Social Determinants Mental Health Status: Stable. Support Systems Include:: Personal suppo rt system (see notes). Court System Involvement?: No Housing Stability:: Stable and safe hous ing. 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 Referrals needed:: No referrals needed a t this time. Recommended Wellness and Pre vention Follow-up Recommended Wellness and Prevention reviewed:: Yes. No additional orders/actions needed at this time. Other concerns: Other Concerns?: No. Narcan need: No. Patient already has Gabo can. Examination Category Sub-Category Detail Notes Category Not es General Examination GENERAL APPEARANCE: appointment vi a telephone PSYCH: speech clear, though t process logical, goal directed
--- OUTSIDE RECORDS SUMMARY | 2024-07-03 01:31 | XMS_ITS | Patient Health Record ---
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 Phone Andrealbin Jhoanadouglas Primary Care Provider Pedro Sutherland Unavailable [phone] Roopa Knowles Unavailable [phone] Allergies No Known Allergies Results Component Value Reference Range Notes 12 Panel Urine Drug Screen Reviewed date:02/20/2024 08:20:08 AM Interpretation: Performing Lab: Notes/Report: THC neg NANCY neg MOP (OPI) neg AMP neg MET neg BAR neg BZO neg MDMA neg MTD neg OXY neg PCP neg BUP POS Buprenorphine and Metabolite (Urine test) Reviewed date:07/30/2023 11:12:08 AM Interpretation:Normal Performing Lab:[facility], [address], [place], Phone - [phone], Director - PhDAbudu Notes/Report: Clinical Information:CCU:[id number] LM Buprenorphine Positive Confirmation p erformed by Mass Spectrometry Buprenorphine Positive Buprenorphine Conf, MS, UR 375 Cutoff=10 ng/m L Norbuprenorphine Positive Norbuprenorphine Conf, MS, UR 625 Cutoff=10 n g/mL 12 Panel Urine Drug Screen Reviewed date:12/06/2023 08:27:00 AM Interpretation: Performing Lab: Notes/Report: THC neg NANCY neg MOP (OPI) ne AMP neg MET neg BAR neg BZO neg MDMA neg MTD neg OXY neg PCP neg BUP pos 12 Panel Urine Drug Screen Reviewed date:07/16/2023 08:35:04 AM Interpretation: Performing Lab: Notes/Report: THC neg NANCY neg MOP (OPI) neg AMP neg MET neg BAR neg BZO neg MDMA neg MTD neg OXY neg PCP neg BUP POS 12 Panel Urine Drug Screen Reviewed date:09/20/2023 08:50:41 AM Interpretation: Performing Lab: Notes/Report: THC neg NANCY neg MOP (OPI) neg AMP neg MET neg BAR neg BZO neg MDMA neg MTD neg OXY neg PCP neg BUP POS 12 Panel Urine Drug Screen Reviewed date:05/22/2024 08:30:32 AM Interpretation: Performing Lab: Notes/Report: THC neg NANCY neg MOP (OPI) neg AMP neg MET neg BAR neg BZO neg MDMA neg MTD neg OXY neg PCP neg BUP pos Reason For Referral No Information Medications Medication SIG (Take, Route, Frequency, Duration) Notes Start Date End Date Status Buprenorphine HCl-Naloxone HCl 8-2 MG 1 tablet under the tongue and allow to dissolve Sublingual 1 tablet in morning and afternoon, 1/2 tablet in evening 06/19/2024 Active Levothyroxine Sodium 88 MCG TAKE 1 TABLE T BY MOUTH EVERY DAY Oral for 90 Days Active Lisinopril 20 MG 1 tablet Orally Once a day Active Social History Tobacco Use: Social History Observation Description Date Details (start date - stop date) Never Smoker NA - NA Tobacco Control (Standard) Question Answer Notes Tobacco use: Nonsmoker Problems Problem Type SNOMED Code ICD Code Onset Dates Problem Status W/U Status Risk Notes Problem Mental disorder caused by drug (782834520) Opioid use disorder (F11.99) Active confirmed Vital Signs Heart Rate 86 /min 05/22/2024 Respiratory Rate 16 /min 05/22/2024 Oximetry 98 % 05/22/2024 Blood pressure diastolic 72 mm Hg 05/22/2024 Height 60 in 05/22/2024 Blood pressure systolic 112 mm Hg 05/22/2024 Weight 122 lbs 05/22/2024 BMI 23.82 kg/m2 05/22/2024 Encounters Encounter Location Date Provider Diagnosis [address] [place] [address] 08/16/2023 Ede Elkins [address] [place] [address] 10/03/2023 Ede Elkins Encounter for screening for malignant neoplasm of cervix Z12.4 [facility] [address] [place] [address] 12/06/2023 Pedro Sutherland Opioid use disorder F11.99 [facility] [address] [place] [address] 02/20/2024 Jhoanaia Heavens Opioid use disorder F11.99 [facility] [address] [place] [address] 05/22/2024 Pedro Sutherland Opioid use disorder F11.99 [facility] [address] [place] [address] 07/16/2023 Roopa Knowles Opioid use disorder F11.99 [place] [address] [place] [address] 09/20/2023 Pedro Sutherland Opioid use disorder F11.99 [place] [address] [place] [address] 06/19/2024 Jenia Heavens Opioid use disorder F11.99 [place] [address] [place] [address] 03/25/2024 Jenia Heavens Opioid use disorder F11.99 [place] [address] [place] [address] 01/10/2024 Jenia Heavens Opioid use disorder F11.99 [place] [address] [place] [address] 10/25/2023 Jenia Heavens Opioid use disorder F11.99 [place] [address] [place] [address] 08/21/2023 Jenia Heavens Opioid use disorder F11.99 Assessments Encounter Date Diagnosis (ICD Code) Assessment Notes Treatment Notes Treatment Clinical Notes Section Notes 06/19/2024 Opioid use disorder (ICD-10 - F11.99) 03/25/2024 Opioid use disorder (ICD-10 - F11.99) 02/20/2024 Opioid use disorder (ICD-10 - F11.99) 12/06/2023 Opioid use disorder (ICD-10 - F11.99) 10/25/2023 Opioid use disorder (ICD-10 - F11.99) 10/03/2023 Encounter for screening for malignant neoplasm of cervix (ICD-10 - Z12.4) Patient Educated with: Learning about Cervical Cancer Screenings.pdf (Learning about Cervical Cancer Screenings.pdf) 09/20/2023 Opioid use disorder (ICD-10 - F11.99) 08/21/2023 Opioid use disorder (ICD-10 - F11.99) 05/22/2024 Opioid use disorder (ICD-10 - F11.99) 01/10/2024 Opioid use disorder (ICD-10 - F11.99) 07/16/2023 Opioid use disorder (ICD-10 - F11.99) 07/16/2023 Other Patient agrees to take medication as prescribed. Discussed medication side effects, adverse effects, risks, benefits, as well as interactions. Encouraged non-use of opioids. Client to make provider aware of any medication changes that could interact with treatment. Recommended participation in recovery groups/counseling services to help maintain sobriety. May contact the office with any questions or concerns. 08/21/2023 Other Client agrees to take medication as prescribed. Discussed medication side effects, adverse effects, risks, benefits, as well as interactions. Encouraged non-use of opioids. Has naloxone. Recommended participation in recovery groups/counseling services. Agrees to contact office with questions or concerns. 10/25/2023 Other Client agrees to take medication as prescribed. Discussed medication side effects, adverse effects, risks, benefits, as well as interactions. Encouraged non-use of opioids. Has naloxone. Recommended participation in recovery groups/counseling services. Agrees to contact office with questions or concerns. 01/10/2024 Other Patient agrees to take medication as prescribed. Discussed medication side effects, adverse effects, risks, benefits, as well as interactions. Encouraged non-use of opioids. Has naloxone. Recommended participation in recovery groups and/or counseling services. May contact office with questions or concerns. 02/20/2024 Other Patient agrees to take medication as prescribed. Discussed medication side effects, adverse effects, risks, benefits, as well as interactions. Encouraged non-use of opioids. Has naloxone. Recommended participation in recovery groups and/or counseling services. May contact office with questions or concerns. 03/25/2024 Other Patient agrees to take medication as prescribed. Discussed medication side effects, adverse effects, risks, benefits, as well as interactions. Encouraged non-use of opioids. Has naloxone. Recommended participation in recovery groups and/or counseling services. May contact office with questions or concerns. 06/19/2024 Other Discussed medication side effects, adverse effects, risks, benefits, as well as interactions. Encouraged non-use of opioids. Has naloxone. Recommended participation in recovery groups/counseling services. Agrees to contact office with questions or concerns. Plan Of Treatment No Information Insurance Providers Payer Name Payer Address Payer Phone Subscriber Number Group Number Insured Name Patient Relationship to Insured Coverage Start Date Coverage End Date [employer] [address] [place] [address] [id number] Sybil Campbell Self - patient is the insured 3 [employer] [address] [place] [address] [id number] Sybil Campbell Self - patient is the insured 3 Medical (General) History Medical History History ICD Code Opioid use disorder Surgical History Surgery Date(Month/Year) right foot 03/07/23 Hospitalization History Reason Date(Month/Year)
--- OUTSIDE RECORDS SUMMARY | 2024-07-03 01:31 | XMS_ITS | Clinical Summary ---
Author Organization [facility] Address [address] [place] [address] Phone Care Team Providers Care Sign Carpenter Name Role Phone Unavailable Unavailable Unavailable Reason for Visit and Chief Complaint The Chief Complaint is: 2 month fu Plan of Treatment Pending Tests Order Diagnosis Results Due Ordering P maria elena Lab DRUG MONITOR, ROBIN[place] YL, W/CONF,W/medMATCH,URINE 11/05/18 PARKER MARIANO ANP-BC Last Documented On 9 5:40PM ; [facility] Lab PAIN MANAGEMENT, PROFILE 6 WITH CONFIRMATION 11/05/18 PARKER MARIANO ANP-BC Last Documented On 9 5:40PM ; [facility] Assessments Includes: Assessments from this encounter Findings - Cervicalgia [M54.2 - Cervicalgia] - Last Documented On 05/09/2018 9:40AM ; [facility] - Cervical radiculopathy [M54.12 - Radiculopathy, cervical region] - Last Documented On 05/09/2018 9:40AM ; [facility] - Lumbar radiculopathy [M54.16 - Radiculopathy, lumbar region] - Last Documented On 05/09/2018 9:40AM ; [facility] - Chronic pain syndrome [G89.4 - Chronic pain syndrome] - Last Documented On 05/09/2018 9:40AM ; [facility] - snf use of opiate analgesic [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] - Last Documented On 05/09/2018 9:40AM ; [facility] Medical Equipment - Implanted Devices Includes: Current Devices No Medical Equipment Recorded Medications Includes: Medications discussed during this encounter and other current Medications New / Renewed during this visit PARKER MARIANO ANP-BC on 05/09/2018 Hydrocodone-Acetaminophen 10 -325MG Oral Tablet Provider: PARKER GERMAN 30 day supply: 60 tablet, 0 refills Diagnosis: Radiculopathy, cervical region 1 po BID prn Pharmacy: [facility] - [facility] , [facility], [address] - Last Documented On 8 9:53AM By PARKER GERMAN ; [facility] Current Medications (continue as prescribed) FentaNYL 12MCG/HR Transderma l Patch 72 Hour 05/22/2018 Provider: PARKER BAKER Diagnosis: Apply one patch and change q 72 hours Last Documented On 9 4:50PM By PARKER GERMAN ; [facility] Levothyroxine Sodium 100MCG Oral Tablet 02/11/2018 Frankie mariader: Diagnosis: Last Documented On 8 9:20AM By NALLELY JOE ; [facility] Lisinopril-Hydrochlorothiazide 20-12.5MG Oral Tablet 0 02/11/2018 Provider: Diagnosis: Last Documented On 8 9:20AM By NALLELY JOE ; [facility] Medications Administered Includes: Administered Medications from this encounter No Administered Medications Recorded Vital Signs Includes: Vital Signs from this encounter Vital Name 05/09/2018 09:20A Blood Pressure Sitting L 122/76 BP Cuff Size Large Pulse Rate-Sitting (bpm) 70 Pulse Rhythm Irregular Respiration Rate (breaths/min) 16 Height (in) 60 Weight (lb) 141 Body Mass Index (kg/m2) 27.5 Body Surface Area (m2) 1.6 Pain Level 5 Last Documented: On 05/09/2018 9:23AM ; [facility] Results Includes: Results discussed during this encounter No Results Recorded For Specified Dates History of Present Illness Includes: History of Present Illness from this encounter KENDRA NAVAS is a 57 year old female. Patient presents in follow up for chronic neck and low back pain. Pain goes into the arms and legs. Knee surgery is in upcoming months, delayed by need for some additional testing. She is doing well on medication at this time. She would like to consider occupational therapy on the hands. - Medication list reviewed - Prescription Drug Monitoring Program website checked. - Last dose of medication? this morning - Last drug screen appropriate Social History Description Last Updated Former smoker 02/11/2018 Last Documented On 8 9:20AM ; [facility] Single 02/11/2018 Last Documented On 8 9:20AM ; [facility] Smoking status : Former smoker 8 Last Documented On 8 9:20AM ; [facility] Medical History Includes: Medical History addressed during this encounter Description Last Updated 0 miscarriage(s) 02/11/2018 Last Documented On 8 9:20AM ; [facility] Currently wearing eyeglasses 02/11/2018 Last Documented On 8 9:20AM ; [facility] Previously 4 time(s) 02/11/2018 Last Documented On 8 9:20AM ; [facility] Family History Includes: Family History addressed during this encounter No Family History Recorded Review of Systems Includes: Review of Systems from this encounter Systemic: No fever and no chills. Head: No headache. Neck: Neck pain on both sides. Cardiovascular: No chest pain or discomfort. Pulmonary: No dyspnea. Genitourinary: Increased urinary frequency. Endocrine: Muscle weakness. Hematologic: No tendency for easy bruising. Musculoskeletal: Muscle aches, muscle aches neck pain, pain localized to one or more joints, and joint swelling localized to one or more joints. Neurological: No dizziness. Motor disturbances and sensory disturbances. Skin: No rash. Mental Status Includes: Mental Status from this encounter Description Oriented to time, place, and person Functional Status Includes: Functional Status from this encounter No Functional Status Recorded Physical Exam Includes: Physical Exam from this encounter Allergies Includes: Active Allergies No Known Allergies Encounters Encounter Provider Location Date Check-In Time Check-Out Time Diagnosis PAIN MANAGEMENT FOLLOW UP PARKER MARIANO 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
--- OUTSIDE RECORDS SUMMARY | 2024-07-03 01:31 | XMS_ITS | Continuity of Care Document ---
Author Organization [facility] Address [address] [place] [address] [address] [place] [address] Phone Care Team Providers Care Tobacco Prizer Name Role Phone Meng Bajwa Unavailable Unavailable Advance Directives Directive Yes / No Effective Date File Name No Information Encounters Encounter Description Practice Location Reason(s) For Visit Diagnoses Date Provider Providers Copied on Encounter Merged with [facility], [address] [place] [address] [address], [place], [place], [id number], [place] tel:[phone] [address] [facility] [place] No Information [address] [facility] , [address], [place], [address], [place]. tel:[phone] Family History Family Member Type Diagnosis Age At Onset No Information Payers Payer name Insurance type Covered alliance party ID Authoriza tion(s) No Information Social History Type Description Quantity Date Captured Comments Sex Female Smoking Status No Information Chief Complaint And Reason For Visit No Information Reason For Referral Reason For Referral No Information History Of Present Illness Encounter Date Complaint History Of Prese nt Illness No Information Functional Status Date Functional Assessmen t No Information Instructions Date Instruction Additional Infor mation No Information Assessments Type Assessment Date No Information Patient Care Teams Name Effective Dates (start - stop) Status Members No Information
--- OUTSIDE RECORDS SUMMARY | 2024-07-03 01:31 | XMS_ITS ---
Author Organization [facility] Address [address] [place] [address] Phone Care Team Providers Care Bike Assembler Name Role Phone Unavailable Unavailable Unavailable Plan of Treatment No Plan of Treatment Recorded Assessments Includes: Assessments for all patient encounters Findings Encounter Date Cervical radiculopathy PAIN MANAGEMENT F OLLOW UP with PARKER L MONTSERRAT ANP-BC 05/09/2018 Last Documented On 8 9:40AM ; [facility] Cervicalgia PAIN MANAGEMENT FOLLOW UP with T SHERINE L MONTSERRAT ANP-BC 05/09/2018 Last Documented On 8 9:40AM ; [facility] Chronic pain syndrome PAIN MANAGEMENT FO LLOW UP with PARKER L MONTSERRAT ANP-BC 05/09/2018 Last Documented On 8 9:40AM ; [facility] 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 PAIN M ANAGEMENT FOLLOW UP with PARKER L MONTSERRAT ANP-BC 05/09/2018 Last Documented On 8 9:40AM ; [facility] Lumbar radiculopathy PAIN MANAGEMENT FOL LOW UP with PARKER L MONTSERRAT ANP-BC 05/09/2018 Last Documented On 8 9:40AM ; [facility] Cervical radiculopathy PAIN MANAGEMENT F OLLOW UP with PARKER L MONTSERRAT ANP-BC 03/13/2018 Last Documented On 8 9:30AM ; [facility] Cervicalgia PAIN MANAGEMENT FOLLOW UP with T SHERINE L MONTSERRAT ANP-BC 03/13/2018 Last Documented On 8 9:30AM ; [facility] Chronic pain syndrome PAIN MANAGEMENT FO LLOW UP with PARKER L MONTSERRAT ANP-BC 03/13/2018 Last Documented On 8 9:30AM ; [facility] use [facility] opiate analgesic PAIN M ANAGEMENT FOLLOW UP with PARKER MARIANO [facility] 03/13/2018 Last Documented On 8 9:30AM ; [facility] Lumbar radiculopathy PAIN MANAGEMENT FOL LOW UP with PARKER MARIANO [facility] 03/13/2018 Last Documented On 8 9:30AM ; [facility] Cervical radiculopathy PAIN MANAGEMENT N EW CONSULT with PARKERMARCELINO MARIANO [facility] 02/11/2018 Last Documented On 8 9:59AM ; [facility] Cervicalgia PAIN MANAGEMENT NEW CONSULT with PARKERMARCELINO MARIANO [facility] 02/11/2018 Last Documented On 8 9:59AM ; [facility] Chronic pain syndrome PAIN MANAGEMENT NE W CONSULT with PARKERMARCELINO MARIANO [facility] 02/11/2018 Last Documented On 8 9:59AM ; [facility] 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 PAIN M ANAGEMENT NEW CONSULT with PARKERMARCELINO MARIANO [facility] 02/11/2018 Last Documented On 8 9:59AM ; [facility] Lumbar radiculopathy PAIN MANAGEMENT NEW CONSULT with PARKERMARCELINO MARIANO [facility] 02/11/2018 Last Documented On 8 9:59AM ; [facility] Medical Equipment - Implanted Devices Includes: Current and historical Devices No Medical Equipment Recorded Medications Includes: Current and historical Medications Current Medications (continue as prescribed) FentaNYL 12MCG/HR Transderma l Patch 72 Hour 05/22/2018 Provider: PARKER BAKER Diagnosis: Apply one patch and change q 72 hours Last Documented On 9 4:50PM By PARKER GERMAN ; [facility] Hydrocodone-Acetaminophen 10 -325MG Oral Tablet 05/09/2018 Provider: PARKER GERMAN Diagnosis: Radiculopathy, cervical region 1 po BID prn Last Documented On 8 9:53AM By PARKER GERMAN ; [facility] Levothyroxine Sodium 100MCG Oral Tablet 02/11/2018 Frankie mariader: Diagnosis: Last Documented On 8 9:20AM By NALLELY JOE ; [facility] Lisinopril-Hydrochlorothiazide 20-12.5MG Oral Tablet 0 02/11/2018 Provider: Diagnosis: Last Documented On 8 9:20AM By NALLELY JOE ; [facility] Past Medications on file FentaNYL 12MCG/HR Transdermal Patch 72 Hour 05/22/2018 - 05/20/2018 Provider: PARKER GERMAN Diagnosis: CHANGE EVERY 72 HOURS x 2 patches Last Documented On 9 4:50PM By PARKER GERMAN ; [facility] FentaNYL 25MCG/HR Transdermal Patch 72 Hour 04/21/2018 - 05/22/2018 Provider: PARKER GERMAN Diagnosis: CHANGE EVERY 72 HOURS Last Documented On 9 4:50PM By PARKER GERMAN ; [facility] Hydrocodone-Acetaminophen 10 -325MG Oral Tablet 04/08/2018 - 05/09/2018 Provider: PARKER GERMAN Diagnosis: 1 po BID prn Last Documented On 8 9:39AM By PARKER GERMAN ; [facility] FentaNYL 25MCG/HR Transdermal Patch 72 Hour 03/20/2018 - 04/21/2018 Provider: PARKER GERMAN Diagnosis: CHANGE EVERY 72 HOURSto fill 03/22/18 Last Documented On 8 4:26PM By PARKER GERMAN ; [facility] Hydrocodone-Acetaminophen 10 -325MG Oral Tablet 03/13/2018 - 04/07/2018 Provider: PARKER GERMAN Diagnosis: 1 po BID prn Last Documented On 8 8:42AM By PARKER GERMAN ; [facility] FentaNYL 25MCG/HR Transdermal Patch 72 Hour 02/21/2018 - 03/20/2018 Provider: PARKER GERMAN Diagnosis: CHANGE EVERY 72 HOURS Last Documented On 8 3:35PM By PARKER GERMAN ; [facility] Hydrocodone-Acetaminophen 10 -325MG Oral Tablet 02/13/2018 - 03/13/2018 Provider: PARKER GERMAN Diagnosis: Chronic pain syndrome 1 po BID prn Last Documented On 8 9:29AM By PARKER GERMAN ; [facility] Hydrocodone-Acetaminophen 10 -325MG Oral Tablet 02/12/2018 - 02/12/2018 Provider: PARKER GERMAN Diagnosis: Chronic pain syndrome 1 po BID prn Last Documented On 8 3:01PM By PARKER GERMAN ; [facility] Hydrocodone-Acetaminophen 10-325MG Oral Tablet 0 02/11/2018 - 02/11/2018 Provider: Diagnosis: Last Documented On 8 12:04PM By PARKER GERMAN ; [facility] FentaNYL 25MCG/HR Transdermal Patch 72 Hour 02/11/2018 - 02/20/2018 Provider: Diagnosis: Last Documented On 8 9:57AM By PARKER GERMAN ; [facility] Medications Administered Includes: Administered Medications in patient's chart No Administered Medications Recorded Results Includes: Results from 07/03/2023 through 07/03/2024 No Results Recorded For Specified Dates History of Present Illness History of Present Illness not supported for this document type No History of Present Illness Recorded Social History Description Last Updated Former smoker 02/11/2018 Last Documented On 8 9:59AM ; [facility] Single 02/11/2018 Last Documented On 8 9:59AM ; [facility] Smoking status : Former smoker 8 Last Documented On 8 9:59AM ; [facility] Medical History Includes: Medical History in patient's chart Description Last Updated 0 miscarriage(s) 02/11/2018 Last Documented On 8 9:59AM ; [facility] Currently wearing eyeglasses 02/11/2018 Last Documented On 8 9:59AM ; [facility] Previously 4 time(s) 02/11/2018 Last Documented On 8 9:59AM ; [facility] Family History Includes: Family History in patient's chart No Family History Recorded Review of Systems Review of Systems not supported for this document type No Review of Systems Recorded Mental Status No Mental Status Recorded Functional Status No Functional Status Recorded Physical Exam Physical Exam not supported for this document type No Physical Exam Recorded Allergies Includes: Active, inactive, and resolved Allergies No Known Allergies Clinical Notes Includes: Signed Clinical Notes starting from 06/08/2022 No Clinical Notes Recorded
--- OUTSIDE RECORDS SUMMARY | 2024-07-03 01:31 | XMS_ITS | Clinical Summary ---
Author Organization [facility] Address [address] [place] [address] Phone Care Team Providers Care Area Field Worker Name Role Phone Unavailable Unavailable Unavailable Reason for Visit and Chief Complaint * PHONE CALL Plan of Treatment No Plan of Treatment Recorded Assessments Includes: Assessments from this encounter No Assessments Recorded Medical Equipment - Implanted Devices Includes: Current Devices No Medical Equipment Recorded Medications Includes: Medications discussed during this encounter and other current Medications New / Renewed during this visit PARKER GERMAN on 04/21/2018 FentaNYL 25MCG/HR Transdermal Patch 72 Hour Provider: PAREKR GERMAN 30 day supply: 10 transderm, 0 refills Diagnosi s: CHANGE EVERY 72 HOURS Pharmacy: [facility] [address] [facility] Last Documented On 9 4:50PM By PARKER GERMAN ; [facility] Current Medications (continue as prescribed) FentaNYL 12MCG/HR Transderma l Patch 72 Hour 05/22/2018 Provider: PARKER BAKER Diagnosis: Apply one patch and change q 72 hours Last Documented On 9 4:50PM By PARKER GERMAN ; [facility] Hydrocodone-Acetaminophen 10 -325MG Oral Tablet 05/09/2018 Provider: PARKER GERMAN Diagnosis: Radiculopathy, cervical region 1 po BID prn Last Documented On 8 9:53AM By PARKER GERMAN ; [facility] Levothyroxine Sodium 100MCG Oral Tablet 02/11/2018 Frankie arredondo: Diagnosis: Last Documented On 8 9:20AM By NALLELY JOE ; [facility] Lisinopril-Hydrochlorothiazide 20-12.5MG Oral Tablet 0 02/11/2018 Provider: Diagnosis: Last Documented On 8 9:20AM By NALLELY JOE ; [facility] Medications Administered Includes: Administered Medications from this encounter No Administered Medications Recorded Results Includes: Results discussed during this encounter No Results Recorded For Specified Dates History of Present Illness Includes: History of Present Illness from this encounter No History of Present Illness Recorded Social History Description Last Updated Former smoker 02/11/2018 Last Documented On 8 11:09AM ; [facility] Single 02/11/2018 Last Documented On 8 11:09AM ; [facility] Smoking status : Former smoker 8 Last Documented On 8 11:09AM ; [facility] Medical History Includes: Medical History addressed during this encounter Description Last Updated 0 miscarriage(s) 02/11/2018 Last Documented On 8 11:09AM ; [facility] Currently wearing eyeglasses 02/11/2018 Last Documented On 8 11:09AM ; [facility] Previously 4 time(s) 02/11/2018 Last Documented On 8 11:09AM ; [facility] Family History Includes: Family History addressed during this encounter No Family History Recorded Review of Systems Includes: Review of Systems from this encounter No Review of Systems Recorded Mental Status Includes: Mental Status from this encounter No Mental Status Recorded Functional Status Includes: Functional Status from this encounter No Functional Status Recorded Physical Exam Includes: Physical Exam from this encounter No Physical Exam Recorded Allergies Includes: Active Allergies No Known Allergies Encounters Encounter Provider Location Date Check-In Time Check-Out Time Diagnosis * PHONE CALL PARKER MURO[facility]- 8 11:09AM 11:59PM Clinical Notes Includes: Clinical Notes from this encounter No Clinical Notes Recorded
--- OUTSIDE RECORDS SUMMARY | 2024-07-03 01:31 | XMS_ITS | Clinical Summary ---
Author Organization [facility] Address [address] [place] [address] Phone Care Team Providers Care Sports Psychologist Name Role Phone Unavailable Unavailable Unavailable Reason for Visit and Chief Complaint * PHONE CALL Plan of Treatment No Plan of Treatment Recorded Assessments Includes: Assessments from this encounter No Assessments Recorded Medical Equipment - Implanted Devices Includes: Current Devices No Medical Equipment Recorded Medications Includes: Medications discussed during this encounter and other current Medications Current Medications (continue as prescribed) FentaNYL 12MCG/HR Transderma l Patch 72 Hour 05/22/2018 Provider: PARKER BAKER Diagnosis: Apply one patch and change q 72 hours Last Documented On 9 4:50PM By PARKER GERMAN ; [facility] Hydrocodone-Acetaminophen 10 -325MG Oral Tablet 05/09/2018 Provider: PARKER GERMAN Diagnosis: Radiculopathy, cervical region 1 po BID prn Last Documented On 8 9:53AM By PARKER GERMAN ; [facility] Levothyroxine Sodium 100MCG Oral Tablet 02/11/2018 Frankie mariader: Diagnosis: Last Documented On 8 9:20AM By NALLELY JOE ; [facility] Lisinopril-Hydrochlorothiazide 20-12.5MG Oral Tablet 0 02/11/2018 Provider: Diagnosis: Last Documented On 8 9:20AM By NALLELY JOE ; [facility] Medications Administered Includes: Administered Medications from this encounter No Administered Medications Recorded Results Includes: Results discussed during this encounter No Results Recorded For Specified Dates History of Present Illness Includes: History of Present Illness from this encounter No History of Present Illness Recorded Social History Description Last Updated Former smoker 02/11/2018 Last Documented On 9 9:54AM ; [facility] Single 02/11/2018 Last Documented On 9 9:54AM ; [facility] Smoking status : Former smoker 8 Last Documented On 9 9:54AM ; [facility] Medical History Includes: Medical History addressed during this encounter Description Last Updated 0 miscarriage(s) 02/11/2018 Last Documented On 9 9:54AM ; [facility] Currently wearing eyeglasses 02/11/2018 Last Documented On 9 9:54AM ; [facility] Previously 4 time(s) 02/11/2018 Last Documented On 9 9:54AM ; [facility] Family History Includes: Family History addressed during [...] Check-Out Time Diagnosis * PHONE CALL PARKER MURO-TRISHA [facility]- 9 9:54AM 11:59PM Clinical Notes Includes: Clinical Notes from this encounter No Clinical Notes Recorded
--- OUTSIDE RECORDS SUMMARY | 2024-07-03 01:31 | XMS_ITS ---
Author Organization Formerly [facility] Address [address] [place] [address] Care Team Providers Care E Learning Specialist Name Role Phone Ede Elkins Primary Care Provider Pedro Sutherland Unavailable [phone] Results Component Value Reference Range Notes 12 Panel Urine Drug Screen Reviewed date:05/22/2024 08:30:32 AM Interpretation: Performing Lab: Notes/Report: THC neg NANCY neg MOP (OPI) neg AMP neg MET neg BAR neg BZO neg MDMA neg MTD neg OXY neg PCP neg BUP pos REASON FOR VISIT MAT F/U Medications Medication SIG (Take, Route, Frequency, Duration) Notes Start Date End Date Status Buprenorphine HCl-Naloxone HCl 8-2 MG 1 tablet under the tongue and allow to dissolve Sublingual 1 tablet in morning and afternoon, 1/2 tablet in evening 05/22/2024 Active Lisinopril 20 MG 1 tablet Orally Once a day Active Levothyroxine Sodium 88 MCG TAKE 1 TABLET BY MOUTH EVERY DAY Oral for 90 Days Active Lisinopril-hydroCHLOROthia zide 20-12.5 MG Oral for 90 Days Not-Taki ng Vital Signs Weight 122 lbs 05/22/2024 Height 60 in 05/22/2024 BMI 23.82 kg/m2 05/22/2024 Blood pressure systolic 112 mm Hg 05/22/19 25 Blood pressure diastolic 72 mm Hg 025 Heart Rate 86 /min 05/22/2024 Oximetry 98 % 05/22/2024 Respiratory Rate 16 /min 05/22/2024 Encounters Encounter Location Date Provider Diagnosis [facility] [address] [place] [address] 05/22/2024 Pedro Sutherland Opioid use disorder F11.99 Assessments Encounter Date Diagnosis (ICD Code) Assessment Notes Treatment Notes Treatment Clinical Notes Section Notes 05/22/2024 Opioid use disorder (ICD-10 - F11.99) Plan Of Treatment Medication Medication Name Sig Start Date Stop Date Notes Buprenorphine HCl-Naloxone H Cl 8-2 MG 1 tablet under the tongue and allow to dissolve Sublingual 1 tablet in morning and afternoon, 1/2 tablet in evening 05/22/2024 Next Appt Details Follow Up: 4 Weeks, Reason: mat Progress Notes * Sybil CAMPBELL RDOB:1960 ( 63 yo F)Acc No.[id number]:05/22/2024 Patient: Sybil OSMAN Provider: Kylah Sutherland :1960 A ge:63 Y S ex:Female Date:05/22/2024 Address:[address] [place], [place] [id number] Pcp:Ede Elkins Subjective: * Chief Complaints: * M AT F/U * HPI: P reventative Health and Wellness follow-up: Action Plans for Clinical Quality Measures: B reast Cancer Screening: D iscussed need for breast cancer screening. Patient declined. C ervical Cancer Screening: D iscussed need for cervical cancer screening. Patient declined. H IV Screening: D iscussed need for HIV screening. Patient declined. .. C SSRS Interpretation and Follow Up Plan: CSSRS Interpretation and Follow Up PlanCSSRS Interpretation and Follow Up Plan. CSSRS Interpretation and Follow Up Plan C SSRS Screen documented using SF Y es M oderate or High risk requires selection of a follow up plan C SSRS No/Low: intervention not needed at this time R isk Disposition from SF L ow - No Follow Up Plan Required D epression Screening: PHQ-9 L ittle interest [...] all T otal Score 0 S creening: [place] Suicide Severity Rating Scale (LF) D o [...] N o I nterpretation: L ow Risk M AR follow-up: MAR F/U W/O ISSUES. TOLERATING BUPRENIORPHINE W/O CRAVINGS OR SETBACKS OR SIDE EFFECTS. Medication Monitoring and Risk Mitigation U p-to-date on [facility] recommended lab testing??Yes reports labs completed with [...] safe housing. 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 R eferrals needed: N o referrals needed at this time. Recommended Wellness and Prevention Follow-up R ecommended Wellness and Prevention reviewed:?Yes. No additional orders/actions needed at this time. Other concerns: O ther Concerns? N o. N arcan need N o. Patient already has Narcan. * ROS: B asic ROS: Denies S ubstance Abuse. * Medical History: * Surgical History: r ight foot 03/07/23 * Hospitalization/Major Diagno stic Procedure: N o Hospitalization History. * Family History: F ather: , Car [...] E mployment Status: Y es Tobacco Use - do not use T obacco Use: F ormer * Medications: T akingBuprenorphine HCl-Naloxone HCl 8-2 MG Tablet Sublingual 1 tablet under the tongue and allow to dissolve Sublingual 1 tablet in morning and afternoon, 1/2 tablet in evening Lisinopril 20 MG Tablet 1 tablet Orally Once a day Levothyroxine Sodium 88 MCG Capsule TAKE 1 TABLET BY MOUTH EVERY DAY Oral Taking Buprenorphine HCl- Naloxone HCl 8-2 MG Tablet Sublingual 1 tablet under the tongue and allow to dissolve Sublingual 1 tablet in morning and afternoon, 1/2 tablet in evening Taking Lisinopril 20 MG Tablet 1 tablet Orally Once a day Taking Levothyroxine Sodium 88 MCG Capsule TAKE 1 TABLET BY MOUTH EVERY DAY Oral Gbp-UycknbGgfnqtxqjo-wmqvvREWQRGdvfzuglt 20-12.5 MG Tablet Oral Not-Taking Lisinopril-hydroCHLOROthiazide 20-12.5 MG Tablet Oral * Allergies: n o[Allergies Verified] Objective: * Vitals: I nitials: hp, Wt:122, Ht: 60, BMI:23.82, BP:112/72, HR:86, Oxygen sat %:98, RR:16, LMP: barb, Pain scale:0. * Examination: G eneral Examination: GENERAL APPEARANCE: w ell developed, well nourished, in no acute distress. A JUDIE Physical Assessment: Intoxication and Withdrawal signs Assessment: * Assessment: 1. O pioid use disorder - F11.99 (Primary) Plan: * Treatment: Value Reference Range T HC neg * C OC neg * M OP (OPI) neg * A MP neg * M ET neg * B AR neg * B ZO neg * M DMA neg * M TD neg * O XY neg * P CP neg * B UP pos * Recommended Wellness and Pre vention Guidelines: * S tatus A lerar L ast Done N ext Due A ction Taken N ONCOMPLIANT A lcohol use screening - 0 05/22/2024 - N ONCOMPLIANT B reast cancer screening - 0 05/22/2024 - N ONCOMPLIANT C ervical cancer screening - 0 05/22/2024 - N ONCOMPLIANT C holesterol screen (genl pop) - 0 05/22/2024 - N ONCOMPLIANT C olorectal cancer screening - 0 05/22/2024 - N ONCOMPLIANT H IV screening - 0 05/22/2024 - N ONCOMPLIANT I nfluenza vaccine (over 50) - 0 05/22/2024 - * Procedure Codes: 9 9000 SPECIMEN HANDLING * Follow Up: 4 Weeks (Reason: mat) * Care Plan Details* * GER ASSESSMENT Sign off status: Completed true * Provider: Kylah Sutherland Date: 0 05/22/2024 Generated for Chirag osborne/Cassius/Connie on: 0 07/03/2024 01:31 AM MANAGER ASSESSMENT History and Physical Notes * HPI (History [...] Not at all Total Score: 0 Screening [place] Suicide Sev erity Rating Scale (LF) Do [...] Up Plan CSSRS Screen documented using SF: Yes Moderate or High risk requir es selection of a follow up plan: CSSRS No/Low: intervention not needed at this time Risk Disposition from SF: Low - No Follo w Up Plan Required MAR follow-up Medication Monitorin g and Risk [...] and safe hous ing. 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 Referrals needed:: No referrals needed a t this time. Recommended Wellness and Pre vention Follow-up Recommended Wellness and Prevention reviewed:: Yes. No additional orders/actions needed at this time. Other concerns: Other Concerns?: No. Narcan need: No. Patient already has Gabo can. Preventative Health and Wellness follow-up Action Plans for Clinical Quality Measures: Breast Cancer Screening:: Discussed need for breast cancer screening. Patient declined. . . Cervical Cancer Screening:: Discussed need for cervical cancer screening. Patient declined. HIV Screening:: Discussed need for HIV s creening. Patient declined. Examination Category Sub-Category Detail Notes Category Not es General Examination GENERAL APPEARANCE: well dev eloped, well nourished, in no acute distress ASAM Physical Assessment Intoxication and Withdrawal signs Intoxication signs: No signs of intoxication are present during examination. Withdrawal Signs: No withdrawal signs ar e present during examination.
--- OUTSIDE RECORDS SUMMARY | 2024-07-03 01:31 | XMS_ITS | Clinical Summary ---
Author Organization [facility] Address [address] [place] [address] Phone Care Team Providers Care Retort Kiln Burner Name Role Phone Unavailable Unavailable Unavailable Reason for Visit and Chief Complaint CHART UPDATE Plan of Treatment Reprinted Rx for fentanyl - Last Documented On 05/22/2018 4:52PM ; [facility] Assessments Includes: Assessments from this encounter No [...] 4:50PM By PARKER GERMAN ; [facility] Hydrocodone-Acetaminophen 10 -325MG Oral Tablet 05/09/2018 Provider: PAREKR GERMAN Diagnosis: Radiculopathy, cervical region 1 po BID prn Last Documented On 8 9:53AM By PARKER GERMAN ; [facility] Levothyroxine Sodium 100MCG Oral Tablet 02/11/2018 Frankie mariader: Diagnosis: Last Documented On 8 9:20AM By NALLELY JOE ; [facility] Lisinopril-Hydrochlorothiazide 20-12.5MG Oral Tablet 0 02/11/2018 Provider: Diagnosis: Last Documented On 8 9:20AM By NALLELY JOE ; [facility] Medications Administered Includes: Administered Medications from this encounter No Administered Medications Recorded Results Includes: Results discussed during this encounter No Results Recorded For Specified Dates History of Present Illness Includes: History of Present Illness from this encounter No History of Present Illness Recorded Social History Description Last Updated Former smoker 02/11/2018 Last Documented On 9 4:20PM ; [facility] Single 02/11/2018 Last Documented On 9 4:20PM ; [facility] Smoking status : Former smoker 8 Last Documented On 9 4:20PM ; [facility] Medical History Includes: Medical History addressed during this encounter Description Last Updated 0 miscarriage(s) 02/11/2018 Last Documented On 9 4:20PM ; [facility] Currently wearing eyeglasses 02/11/2018 Last Documented On 9 4:20PM ; [facility] Previously 4 time(s) 02/11/2018 Last Documented On 9 4:20PM ; [facility] Family History Includes: Family History addressed during [...] Location Date Check-In Time Check-Out Time Diagnosis CHART UPDATE PARKER GERMAN 05/20/2018 5:40PM 11:59PM Clinical Notes Includes: Clinical Notes from this encounter No Clinical Notes Recorded
--- OUTSIDE RECORDS SUMMARY | 2024-07-03 01:32 | XMS_ITS | Clinical Summary ---
Author Organization [facility] Address [address] [place] [address] Phone Care Team Providers Care Painter Touch Up Name Role Phone Unavailable Unavailable Unavailable Reason [...] On 9 4:50PM By PARKER GERMAN ; [facility] Hydrocodone-Acetaminophen 10 -325MG Oral Tablet 05/09/2018 Provider: PARKER GERMAN Diagnosis: Radiculopathy, cervical region 1 po BID prn Last Documented On 8 9:53AM By PARKER GERMAN ; [facility] Levothyroxine Sodium 100MCG Oral Tablet 02/11/2018 Frankie mariader: Diagnosis: Last Documented On 8 9:20AM By NALLELY JOE ; [facility] Lisinopril-Hydrochlorothiazide 20-12.5MG Oral Tablet 0 02/11/2018 Provider: Diagnosis: Last Documented On 8 9:20AM By NALLELY JOE ; [facility] Medications Administered Includes: Administered Medications from this encounter No Administered Medications Recorded Results Includes: Results discussed during this encounter No Results Recorded For Specified Dates History of Present Illness Includes: History of Present Illness from this encounter No History of Present Illness Recorded Social History Description Last Updated Former smoker 02/11/2018 Last Documented On 8 9:18AM ; [facility] Single 02/11/2018 Last Documented On 8 9:18AM ; [facility] Smoking status : Former smoker 8 Last Documented On 8 9:18AM ; [facility] Medical History Includes: Medical History addressed during this encounter Description Last Updated 0 miscarriage(s) 02/11/2018 Last Documented On 8 9:18AM ; [facility] Currently wearing eyeglasses 02/11/2018 Last Documented On 8 9:18AM ; [facility] Previously 4 time(s) 02/11/2018 Last Documented On 8 9:18AM ; [facility] Family History Includes: Family History [...] Time Diagnosis * PHONE CALL PARKER MURO-TRISHA [facility]- 8 9:18AM 11:59PM Clinical Notes Includes: Clinical Notes from this encounter No Clinical Notes Recorded
--- OUTSIDE RECORDS SUMMARY | 2024-07-03 01:32 | XMS_ITS ---
Care Plan - [facility] Created on: July 03, 2024 MICHAEL NAVAS Arina : 1960 Sex: Female Author Organization [facility] Address [address] [place] [address] Phone Care Team Providers Care Freelance Graphic Designer Name Role Phone Unavailable Unavailable Unavailable
--- OUTSIDE RECORDS SUMMARY | 2024-07-03 01:32 | XMS_ITS | Clinical Summary ---
Author Organization [facility] Address [address] [place] [address] Care Team Providers Care Bin Tripper Operator Name Role Phone Melinda Velasquez MD Primary Care Provider [phone] Source Comments [facility],non-owned Affiliates and Associated Physician Practices is amultiple site organization consisting of ambulatory clinics and hospital sitesin [place], [place], [place] and [place]. This disclosure is being madepursuant to the Care Everywhere program and may not contain all information available regarding this patient. Last updated 18.[facility] Allergies No known active allergies Medications * Be aware that medications may not be up to date on this document. Alwaysverify current medications with the patient. Medication Sig Dispensed Refills Start Date End Date Status lisinopril-hydroCHLORO thiazide (PRINZIDE; ZESTORETIC) 20-12.5 MG tablet Take 1 tablet by mouth once daily Active levothyroxine (SYNTHROID) 100 MCG tablet Take 100 mcg by mouth once daily Active HYDROcodone-acetaminop hen (NORCO) 10-325 MG tablet Take 1 tablet by mouth 2 times daily Active cyanocobalamin (VITAMIN B-12) 1000 MCG tablet Take 1,000 mcg by mouth once daily Active fentaNYL (DURAGESIC) 100 MCG/HR patch Apply 1 patch to skin every 3 days Do not apply heat over patch. Active Multiple Vitamin (DAILY TAMY PO) Take by mouth once daily Active Calcium Carbonate-Vitamin D3 (CALCIUM 600/VITAMIN D) 600-400 MG-UNIT Active Magnesium 500 MG Active Active Problems Problem Noted Date Diagnosed Date Primary osteoarthritis of left knee 04/25/2018 Social History Tobacco Use Types Packs/Day Years Used Date Smoking Tobacco: Former Cigarettes Q uit: 12/24/2017 Smokeless Tobacco: Never Sex and Gender Information Value Date Recorded Sex Assigned at Not on file Gender Identity Not on file Sexual Orientation Not on file Last Filed Vital Signs Vital Sign Reading Time Taken Comments Blood Pressure 110/75 04/25/2018 11:18 AM ASSISTANT STORE MANAGER Pulse 82 04/25/2018 11:18 AM ASSISTANT STORE MANAGER Temperature 36.3 C (97.4 F) 04/25/2018 11:18 AM ASSISTANT STORE MANAGER Respiratory Rate - - Oxygen Saturation - - Inhaled Oxygen Concentration - - Weight 63.5 kg (140 lb) 04/29/2018 10:22 AM ASSISTANT STORE MANAGER Height 152.4 cm (5') 04/29/2018 10:22 AM ASSISTANT STORE MANAGER Body Mass Index 27.34 04/29/2018 10:22 AM ASSISTANT STORE MANAGER Plan of Treatment Health Maintenance Due Date Last Done Comments COLOGUARD (AGES 45-75) - COL ON CA SCREENING 1960 COLON MONITORING 1960 COLONOSCOPY - COLON CA SCREENING 1960 CT COLONOGRAPHY - COLON CA SCREENING 1960 Colorectal Cancer Screening 1960 FIT - COLON CA SCREENING 1960 FLEX SIG - COLON CA SCREENING 1960 LIPID TESTING 1960 MAMMOGRAM 1960 PAP SMEAR 1962 HIV SCREENING 1977 HEPATITIS C SCREENING 07/15/1980 DTAP/TDAP/TD VACCINES (1 - Tdap) 1981 PNEUMOCOCCAL VACCINE 50+ (1 of 1 - PCV) 2012 ZOSTER VACCINE (1 of 2) 2012 SCREENING FOR DIABETES 04/25/2018 COVID-19 VACCINE ( - 2023-2 5 season) 2024 INFLUENZA VACCINE (#1) 2024 DEPRESSION SCREENING 05/20/2024 Respiratory Syncytial Virus (RSV) Vaccine Pt: or over 60 yrs (1 - 1-dose 75+ series) 2037 HEPATITIS B VACCINE Aged Out No longe r eligible based on patient's age to complete this topic HIB VACCINE Aged Out No longer eligi ble based on patient's age to complete this topic HPV VACCINE Aged Out No longer eligi ble based on patient's age to complete this topic MENINGOCOCCAL (Group B) VACCINE Aged Out No longer eligible based on patient's age to complete this topic MENINGOCOCCAL VACCINE Aged Out No kali danni eligible based on patient's age to complete this topic PNEUMOCOCCAL VACCINE Aged Out No long er eligible based on patient's age to complete this topic Care Teams Bin Tripper Operator Relationship Specialty Start Date End Date Melinda Velasquez MD [address] [place] [address] PCP - General 04/25/18
--- OUTSIDE RECORDS SUMMARY | 2024-07-03 01:32 | XMS_ITS | Referral Summary ---
Author Organization [facility] Address [address] [place] [address] Care Team Providers Care Licensed Weigher Name Role Phone Melinda Velasquez MD Primary Care Provider [phone] Source Comments [facility],non-owned Affiliates and Associated Physician Practices is amultiple site organization consisting of ambulatory clinics and hospital sitesin [place], [place], [place] and [place]. This disclosure is being madepursuant to the Care Everywhere program and may not contain all information available regarding this patient. Last updated 18.[facility] Allergies No known active allergies Medications * [...] Comments Blood Pressure 110/75 04/25/2018 11:18 AM CORRUGATOR MACHINE OPERATOR Pulse 82 04/25/2018 11:18 AM CORRUGATOR MACHINE OPERATOR Temperature 36.3 C (97.4 F) 04/25/2018 11:18 AM CORRUGATOR MACHINE OPERATOR Respiratory Rate - - Oxygen Saturation - - Inhaled Oxygen Concentration - - Weight 63.5 kg (140 lb) 04/29/2018 10:22 AM CORRUGATOR MACHINE OPERATOR Height 152.4 cm (5') 04/29/2018 10:22 AM CORRUGATOR MACHINE OPERATOR Body Mass Index 27.34 04/29/2018 10:22 AM CORRUGATOR MACHINE OPERATOR Plan of Treatment Not on file Care Teams Licensed Weigher Relationship Specialty Start Date End Date Melinda Velasquez MD [address] [place] [id number] PCP - General 04/25/18
--- OUTSIDE RECORDS SUMMARY | 2024-07-03 01:32 | XMS_ITS | Patient Health Summary ---
Author Organization [facility] Address [address] [place] [address] Care Team Providers Care Architecture Manager Name Role Phone Melinda Velasquez MD Primary Care Provider [phone] Note from [facility],non-owned Affiliates and Associated Physician Practices is amultiple site organization consisting of ambulatory clinics and hospital sitesin [place], [place], [place] and [place]. This disclosure is being madepursuant to the Care Everywhere program and may not contain all information available regarding this patient. Last updated 18.[facility] Allergies No known active allergies Medications * Be aware that medications may not be up to date on this document. Alwaysverify current medications with the patient. * lisinopril-hydroCHLOROthiazide (PRINZIDE; ZESTORETIC) 20-12.5 MG tablet Take 1 tablet by mouth once daily * levothyroxine (SYNTHROID) 100 MCG tablet Take 100 mcg by mouth once daily * HYDROcodone-acetaminophen (NORCO) 10-325 MG tablet Take 1 tablet by mouth 2 times daily * cyanocobalamin (VITAMIN B-12) 1000 MCG tablet Take 1,000 mcg by mouth once daily * fentaNYL (DURAGESIC) 100 MCG/HR patch Apply 1 patch to skin every 3 days Do not apply heat over patch. * Multiple Vitamin (DAILY TAMY PO) Take by mouth once daily * Calcium Carbonate-Vitamin D3 (CALCIUM 600/VITAMIN D) 600-400 MG-UNIT * Magnesium 500 MG Active Problems Problem Noted Date Diagnosed Date [...] Comments Blood Pressure 110/75 04/25/2018 11:18 AM PREP ROOM SUPERVISOR Pulse 82 04/25/2018 11:18 AM PREP ROOM SUPERVISOR Temperature 36.3 C (97.4 F) 04/25/2018 11:18 AM PREP ROOM SUPERVISOR Respiratory Rate - - Oxygen Saturation - - Inhaled Oxygen Concentration - - Weight 63.5 kg (140 lb) 04/29/2018 10:22 AM PREP ROOM SUPERVISOR Height 152.4 cm (5') 04/29/2018 10:22 AM PREP ROOM SUPERVISOR Body Mass Index 27.34 04/29/2018 10:22 AM PREP ROOM SUPERVISOR Procedures * XR KNEE LEFT 4VW OR MORE(Performed 04/25/2018) Performed for Left knee pain, unspecified chronicity Results * XR KNEE LEFT 4VW OR MORE (04/25/2018 10:36 AM PREP ROOM SUPERVISOR) Anatomical Region Laterality Modality Lower Extremity Radiographic Martha ging 04/25/2018 11:1 1 AM PREP ROOM SUPERVISOR Impressions 04/25/2018 11:16 AM PREP ROOM SUPERVISOR IMPRESSION: Osteoarthritis, severe in the medial compartment. This report was electronically signed by BRIDGET CLEVELAND M.D. on 04/25/2018 11:16 AM . Narrative 04/25/2018 11:16 AM PREP ROOM SUPERVISOR Exam: XR KNEE LEFT 4VW OR MORE Date: 04/25/2018 10:36 AM History: Pain Comparison: Outside exam done 09/12/2017 and 01/02/2018 FINDINGS: There is no fracture or dislocation. There is marked narrowing of the medial compartment with associated subchondral sclerosis and osteophytes. There is genu varus; the lateral compartment is widened. Minimal chondrocalcinosis is seen in the lateral compartment. Bone density is otherwise normal. There is a small joint effusion. Procedure Note Bridget Cleveland MD - 04/25/2018 Exam: XR KNEE LEFT 4VW OR MORE Date: 04/25/2018 10:36 AM History: Pain Comparison: Outside exam done 09/12/2017 and 01/02/2018 FINDINGS: There is no fracture or dislocation. There is marked narrowing of the medial compartment with associated subchondral sclerosis andosteophytes. There is genu varus; the lateral compartment is widened. Minimal chondrocalcinosis is seen in the lateral compartment. Bone density is otherwise normal. There is a small joint effusion. IMPRESSION: Osteoarthritis, severe in the medial compartment. This report was electronically signed by BRIDGET CLEVELAND M.D. on 04/25/2018 11:16 AM . Mary Garcia PA-C [facility] Care Teams Architecture Manager Relationship Specialty Start Date End Date Melinda Velasquez MD [address] [place] [address] PCP - General 04/25/18
--- OUTSIDE RECORDS SUMMARY | 2024-07-03 01:32 | XMS_ITS ---
Author Organization [facility] Address [address] [place] [address] Care Team Providers Care Head Athletic Trainer Name Role Phone Ede Elkins Primary Care Provider Allergies No Known Allergies REASON FOR VISIT MAT F/U Medications Medication [...] (Standard) Question Answer Notes Tobacco use: Nonsmoker Encounters Encounter Location Date Provider Diagnosis [place] [place] [address] 06/19/2024 Ede Elkins Opioid use disorder F11.99 Assessments Encounter Date Diagnosis (ICD Code) Assessment Notes Treatment Notes Treatment Clinical Notes Section Notes 06/19/2024 Opioid use disorder (ICD-10 - F11.99) 06/19/2024 Other Discussed medication side effects, adverse [...] and afternoon, 1/2 tablet in evening 06/19/2024 Treatment Notes Assessment Notes Other Discussed medication side effects, adverse effects, risks, benefits, as well as interactions. Encouraged non-use of opioids. Has naloxone. Recommended participation in recovery groups/counseling services. Agrees to contact office with questions or concerns. Next Appt Details Follow Up: 4 Weeks, Reason: MAR f/u Progress Notes * Sybil CAMPBELL RDOB:1960 ( 63 yo F)Acc No.[id number]:06/19/2024 Patient: Sybil OSMAN Provider: Obdulio Elkins, MSN, DRILLING ASSISTANT, AIR SHOVEL OPERATOR-C :1960 A ge:63 Y S ex:Female Date:06/19/2024 Address:[address] [place], [place] [id number] Subjective: * Chief Complaints: * M AT F/U * HPI: D epression Screening: PHQ-9 L [...] all T otal Score 0 S creening: [place] Suicide Severity Rating Scale (LF) 1 . Wish to be : Have [...] Up Plan: CSSRS Interpretation and Follow Up Plan C SSRS Screen documented using SF Y es R isk Disposition from SF L ow - No Follow Up Plan Required F ollow Up Plan N o Follow Up Plan required at this time. P reventative Health and Wellness follow-up: . M AR follow-up: Appointment via telephone. Ms. Campbell reports doing well on current dose of buprenorphine. Reports no use of opioids or cravings. Medication Monitoring and Risk Mitigation U p-to-date on ASAM recommended lab testing??No P rescribed a buprenorphine product? Y es H as patient had a buprenorphine and metabolite lab ordered/collected? Y es (see notes for date of last metabolite testing) D ate of last buprenorphine and metabolite?07/16/2023 P rescription Drug Monitoring Program Review?Yes. No [...] safe housing. 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 R eferrals needed: N o referrals needed [...] onstipation. I nsomnia D enies. D enies A nxiety. D enies D epressed Mood.?Denies S uicidal Thoughts. * Medical History: * [...] Employment Status E mployment Status: Y es T obacco Use: T obacco Control (Standard) T obacco use: N onsmoker * Medications: T akingLisinopril 20 MG Tablet 1 tablet Orally Once a day Levothyroxine Sodium 88 MCG Capsule TAKE 1 TABLET BY MOUTH EVERY DAY Oral Buprenorphine HCl-Naloxone HCl 8-2 MG Tablet Sublingual 1 tablet under the tongue and allow to dissolve Sublingual 1 tablet in morning and afternoon, 1/2 tablet in evening Medication List reviewed and reconciled with the patientTaking Lisinopril 20 MG Tablet 1 tablet Orally Once a day Taking Levothyroxine Sodium 88 MCG Capsule TAKE 1 TABLET BY MOUTH EVERY DAY Oral Taking Buprenorphine HCl-Naloxone HCl 8-2 MG Tablet Sublingual 1 tablet under the tongue and allow to dissolve Sublingual 1 tablet in morning and afternoon, 1/2 tablet in evening Medication List reviewed and reconciled with the patient * Allergies: N .K.D.A.no[Allergies Verified] Objective: * Vitals: I nitials: kb, LMP: barb, Pain scale:0. * Examination: G eneral Examination: GENERAL APPEARANCE: a ppointment via telephone. PSYCH: s peech clear, thought process logical, goal directed. Assessment: * Assessment: 1. O pioid use disorder - F11.99 (Primary) Plan: * Treatment: 2. O thers Notes: Discussed medication side effects, adverse effects, risks, benefits, as well as interactions. Encouraged non-use of opioids. Has naloxone. Recommended participation in recovery groups/counseling services. Agrees to contact office with questions or concerns. * Recommended Wellness and Pre vention Guidelines: * S tatus A lert L ast Done N ext Due A ction Taken N ONCOMPLIANT A lcohol use screening - 0 06/19/2024 - N ONCOMPLIANT B reast cancer screening - 0 06/19/2024 - N ONCOMPLIANT C ervical cancer screening - 0 06/19/2024 - N ONCOMPLIANT C holesterol screen (genl pop) - 0 06/19/2024 - N ONCOMPLIANT C olorectal cancer screening - 0 06/19/2024 - N ONCOMPLIANT H IV screening - 0 06/19/2024 - N ONCOMPLIANT I nfluenza vaccine (over 50) - 0 06/19/2024 - * Procedure Codes: * Follow Up: 4 Weeks (Reason: JUL f/u) * * HOUSE SUPERVISOR Sign off status: Completed true * Provider: Obdulio Elkins, MSN, DRILLING ASSISTANT, AIR SHOVEL OPERATOR-C Date: 0 06/19/2024 Generated for Chirag osborne/Cassius/eTransmitting on: 0 07/03/2024 01:31 AM TANK HOUSE SUPERVISOR History and Physical Notes * HPI (History [...] Not at all Total Score: 0 Screening [place] Suicide Sev erity Rating Scale (LF) 1. Wish to be : Have you wished you were or wished you could go to sleep and not wake up?: No 2. Suicidal Thoughts: Have you actually had any thoughts of killing yourself?: No 6. Suicide Behavior Question: Have you ever done anything,started to do anything, or prepared to end your life?: No Interpretation:: Low Risk MAR follow-up Medication Monitorin g and Risk Mitigation Up-to-date on ASAM recommended lab testing?: No Prescribed a buprenorphine product?: Yes Has patient had a buprenorphine and metabolite lab ordered/collected?: Yes (see notes for date of last metabolite testing) Date of last buprenorphine and metabolite: 07/16/2023 Prescription Drug Monitoring Program Rev iew: Yes. [...] and safe hous ing. 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 Referrals needed:: No referrals needed a t this time. Recommended Wellness and Pre vention Follow-up Recommended Wellness and Prevention reviewed:: Yes. No additional orders/actions needed at this time. Other concerns: Other Concerns?: No. Narcan need: No. Patient already has Gabo can. Preventative Health and Wellness follow-up . CSSRS Interpretation and Follow Up Plan CSSRS Interpretation and Follow Up Plan CSSRS Screen documented using SF: Yes Risk Disposition from SF: Low - No Follo w Up Plan Required Follow Up Plan: No Follow Up Plan requir ed at this time. Examination Category Sub-Category Detail Notes Category Not es General Examination GENERAL APPEARANCE: appointment vi a telephone PSYCH: speech clear, though t process logical, goal directed
[2024-07-03 09:13] VITALS: BP 116/68; PULSE 71; RESP 16; TEMP 36.2; O2SAT 97; BMI 23.2
[2024-07-03] MEDS: LACTATED RINGERS 1,000 ML 150 ML IV CONT (09:31)
--- NOTE | 2024-07-03 09:48 | WPDANESEPPF ---
Anes - Initial Pre Proc Eval Procedure: Operation Date: 07/03/24 10:00 Proposed Procedures p Colonoscopy - Fletcher Owen MD Date/Time: 07/03/24 09:48 Surgeon: Fletcher Owen MD Pre Op Diagnosis: + Cologuard Patient Data Age: 63 Gender: F Height: 1.52 m Weight: 54 kg Last Vital Signs Temp 36.2 C L 07/03/24 09:13 Pulse 71 07/03/24 09:13 Resp 16 07/03/24 09:13 BP 116/68 07/03/24 09:13 Pulse Ox 97 07/03/24 09:13 O2 Del Method Room Air 07/03/24 09:13 Allergies Allergy/AdvReac Type Severity Reaction Status Date / Time No Known Allergies Allergy Unknown Verified 07/03/24 09:04 Home Medications ?Medication ?Instructions ?Recorded ?Confirmed ?Type multivitamin with folic acid 400 1 tablet PO DAILY #90 tabs 08/03/21 07/03/24 Rx mcg tablet buprenorphine 2 mg-naloxone 0.5 mg 1 film buccal BID 10/19/22 07/03/24 History sublingual film (Suboxone) calcium 600 mg (as See Rx Instructions .Route 09/30/23 07/03/24 Rx carbonate)-vitamin D3 10 mcg (400 .COMPLEX #180 tabs unit) tablet lisinopril 20 mg tablet 20 mg PO DAILY #90 tabs 03/20/24 07/03/24 Rx levothyroxine 100 mcg tablet 100 mcg PO DAILY #90 tabs 05/11/24 07/03/24 Rx Patient hx anesthesia problems: none Family hx anesthesia problems: none Results Review: All pre-operative results and documents have been reviewed as part of the pre-operative evaluation. [facility] Past Medical History Medical History Hammertoe of right foot Peripheral neuropathy Hypertension Hypothyroid Surgical History Surgical History H/O excision of mass Excision of anal skin tag in office 12/14/22 History of abdominoplasty History of breast lift H/O foot surgery History of total knee replacement H/O Spinal surgery Family History Family History Sibling Family history of malignant neoplasm of breast in first degree relative Mother Aortic aneurysm Other Family history of malignant neoplasm Social History Social History Years smoked: 15 Smoking status: Former smoker Tobacco type: cigarettes Second hand tobacco smoke exposure: No Alcohol intake: unknown Alcohol use details: couple times a year Substance use: former Substance use type: does not use Lack of Transportation: No Lack of Food: Never True Current Housing: I Have Housing Concerned About Future Housing: No Difficulty Paying Gas/Electric Bills: No Difficulty Paying for Meds: No Currently Unemployed: No Education: Trade/Vocational Certificate Difficulty w/ Childcare or Family Care: No Living arrangements: with family Additional living arrangements comments: with adult children Occupation/Education: occupation 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 Gender identity (if verbalized by the patient): Female Sexual Orientation (if Verbalized by the Patient): Straight or Heterosexual Spiritual care concerns: No Agree to blood products: Yes Anes - Eval Final PreProcedure Day of Procedure 07/03/24 09:48 Patient weight: normal Heart: regular rate and rhythm Lungs: clear to auscultation Airway: Mallampati scale class II Neurological: alert and oriented Last oral intake: >/= 8 hours ASA classification: III Emergent: no Anesthetic plan: proceed Anesthesia type and monitoring: general GIVS and standard monitoring Results Review: All pre-operative results and documents have been reviewed as part of the pre-operative evaluation. Informed Consent: The patient's anesthetic plan and its attendant risks and benefits were discussed with the patient/family/POA. Questions were solicited and answers provided to the satisfaction of the patient/family/POA.
--- NOTE | 2024-07-03 10:47 | PM.IMHP ---
H&P: HPI History of Present Illness Date/Time: 07/03/24 10:47 Chief Complaint: Positive Cologuard test Narrative: the patient was recently found to have a positive Cologuard test on screening. She does not have a family history of colon cancer and is asymptomatic from A GI standpoint. Review of Systems Review of Systems: All systems reviewed & are unremarkable except as noted in HPI and below PMFSH Past Medical History Medical History Hammertoe of right foot Peripheral neuropathy Hypertension Hypothyroid Surgical History Surgical History H/O excision of mass Excision of anal skin tag in office 12/14/22 History of abdominoplasty History of breast lift H/O foot surgery History of total knee replacement H/O Spinal surgery Family History Family History Sibling Family history of malignant neoplasm of breast in first degree relative Mother Aortic aneurysm Other Family history of malignant neoplasm Social History Social History Years smoked: 15 Smoking status: Former smoker Tobacco type: cigarettes Second hand tobacco smoke exposure: No Alcohol intake: unknown Alcohol use details: couple times a year Substance use: former Substance use type: does not use Lack of Transportation: No Lack of Food: Never True Current Housing: I Have Housing Concerned About Future Housing: No Difficulty Paying Gas/Electric Bills: No Difficulty Paying for Meds: No Currently Unemployed: No Education: Trade/Vocational Certificate Difficulty w/ Childcare or Family Care: No Living arrangements: with family Additional living arrangements comments: with adult children Occupation/Education: occupation 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 Gender identity (if verbalized by the patient): Female Sexual Orientation (if Verbalized by the Patient): Straight or Heterosexual Spiritual care concerns: No Agree to blood products: Yes Meds Home Medications and Allergies Home Medications ?Medication ?Instructions ?Recorded ?Confirmed ?Type multivitamin with folic acid 400 1 tablet PO DAILY #90 tabs 08/03/21 07/03/24 Rx mcg tablet buprenorphine 2 mg-naloxone 0.5 mg 1 film buccal BID 10/19/22 07/03/24 History sublingual film (Suboxone) calcium 600 mg (as See Rx Instructions .Route 09/30/23 07/03/24 Rx carbonate)-vitamin D3 10 mcg (400 .COMPLEX #180 tabs unit) tablet lisinopril 20 mg tablet 20 mg PO DAILY #90 tabs 03/20/24 07/03/24 Rx levothyroxine 100 mcg tablet 100 mcg PO DAILY #90 tabs 05/11/24 07/03/24 Rx Allergies Allergy/AdvReac Type Severity Reaction Status Date / Time No Known Allergies Allergy Unknown Verified 07/03/24 09:04 Vital Signs Vital Signs - 24 hr 07/03/24 09:13 Temperature 97.1 F L Pulse Rate 71 Respiratory Rate 16 Blood Pressure 116/68 Pulse Oximetry 97 Oxygen Delivery Room Air Exam Const: General: cooperative and healthy appearing Resp: Effort & Inspection: normal respiratory effort and able to speak in complete sentences Auscultation: clear to auscultation bilaterally Cardio: Rate: regular rate Rhythm: regular rhythm GI: Inspection: normal to inspection GI Palp: No No hepatosplenomegaly present Auscultation: normal bowel sounds Rectal Exam: deferred Skin: General skin exam: normal color Psych: Appearance: grossly normal Mental Status: mental status grossly normal Assessment and Plan Assessment and plan (1) Positive colorectal cancer screening using Cologuard test: Code(s): R19.5 - Other fecal abnormalities Status: Acute Assessment and Plan: The patient is deemed a good candidate for the procedure. Consent signed. Will proceed.
[2024-07-03 11:14] VITALS: BP 103/70; PULSE 69; RESP 18; O2SAT 100
[2024-07-03 11:24] VITALS: BP 122/79; PULSE 65; RESP 18; O2SAT 100
[2024-07-03 11:34] VITALS: BP 119/80; PULSE 69; RESP 18; O2SAT 100
--- NOTE | 2024-07-03 11:41 | SUR.PHASEII ---
Pt requests not to stay and speak with MD prior to discharge.
== END 2024-07-03 11:42 | disposition home or self-care (01) ==
PROVIDERS: PCP Family Medicine; Referring Provider Nurse Practitioner Family; Visit Provider Internal Medicine Gastroenterology
PROC: 0DJD8ZZ Inspection of Lower Intestinal Tract, Via Natural or Artificial Opening Endoscopic (ICD-10-PCS; CPT 45378; principal; 2024-07-03 10:00)
DX: R19.5 Other fecal abnormalities (principal); K57.30 Diverticulosis of large intestine without perforation or abscess without bleeding; Z87.891 Personal history of nicotine dependence
CPT/HCPCS: 45378; J2003; J2704; J7120